=== PATIENT | female | born 1935 | race Caucasian/White ===

== ENCOUNTER 2017-07-09 08:20 | Emergency (ER) | payer MEDICARE, OTHER ==
[2017-07-09 08:30] VITALS: BP 148/74
--- NOTE | 2017-07-09 09:08 | UC ---
Epistaxis Nasal HPI - HPI Summary HPI Summary: Patient here today with complaints of left nerve bleeding on and off for the last 4 weeks today (been bleeding for about 30 minutes prior to arrival no known trauma. Patient does have a history of A. fib but is refusing to take her blood thinners not even taking aspirin a day. - History of Current Complaint Chief Complaint: UCGeneralIllness Stated Complaint: NOSE BLEED Time Seen by Provider: 07/09/17 08:51 Hx Obtained From: Patient ?: No Onset/Duration: Sudden Onset Timing: Constant Severity Currently: None Pain Intensity: 0 Pain Scale Used: 0-10 Numeric Character: Light Aggravating Factor(s): Nothing Alleviating Factor(s): Pressure Associated Signs And Symptoms: Positive: Negative - Allergies/Home Medications Allergies/Adverse Reactions: Allergies Allergy/AdvReac Type Severity Reaction Status Date / Time MS Morphine and Related Allergy Unknown dizzyness Verified 12/25/14 19:24 [Morphine and Related] alendronate sodium Allergy See Comment Verified 07/09/17 08:31 [From Fosamax] codeine Allergy See Comment Verified 07/09/17 08:31 morphine Allergy Dizziness Verified 07/09/17 08:31 MS Codeine [Codeine] Allergy lightheaded Verified 12/25/14 19:24 ness prednisone Allergy See Comment Verified 07/09/17 08:31 Home Medications: Home Medications Ascorbic Acid TAB* [Vitamin C TAB*] 500 mg PO DAILY 07/09/17 [History Confirmed 07/09/17] Cholecalciferol (Vitamin D3) [Vitamin D3] 1,000 unit PO 07/09/17 [History] Multivitamin [Multivitamins] 1 cap PO 07/09/17 [History] PMH/Surg Hx/FS Hx/Imm Hx Previously Healthy: No Cardiovascular History: Atrial Fibrillation - Surgical History Surgical History: Yes Surgery Procedure, Year, and Place: HYSTERECTOMY, APPY, tonsillectomy - Family History Known Family History: Positive: None - Social History Occupation: Retired Lives: With Family Alcohol Use: None Substance Use Type: None Smoking Status (MU): Never Smoked Tobacco Have You Smoked in the Last Year: No - Immunization History Most Recent Influenza Vaccination: unknown Most Recent Tetanus Shot: unknown Most Recent Pneumonia Vaccination: 2013 Review of Systems Constitutional: Negative Skin: Negative Eyes: Negative ENT: Epistaxis Respiratory: Negative Cardiovascular: Negative Gastrointestinal: Negative Genitourinary: Negative Motor: Negative Neurovascular: Negative Musculoskeletal: Negative Neurological: Negative Psychological: Negative Is Patient Immunocompromised?: No All Other Systems Reviewed And Are Negative: Yes Physical Exam Triage Information Reviewed: Yes Appearance: Well-Appearing, No Pain Distress, Well-Nourished Vital Signs: Initial Vital Signs Temp 98.7 F 07/09/17 08:24 Pulse 67 07/09/17 08:24 Resp 18 07/09/17 08:24 BP 148/74 07/09/17 08:24 Pulse Ox 97 07/09/17 08:24 Vital Signs Reviewed: Yes Eye Exam: Normal Eyes: Positive: Conjunctiva Clear ENT Exam: Normal ENT: Positive: Normal ENT inspection, Hearing grossly normal, Pharynx normal, TMs normal, Other - Bleeding and left nerve resolved with direct pressure small amount of Vaseline applied did leak B bleed out momentarily again quickly relieved with direct pressure. No specific open area observed septum of left nare. Negative: Trismus, Muffled voice, Hoarse voice, Dental tenderness Dental Exam: Normal Neck exam: Normal Neck: Positive: Supple, Nontender, No Lymphadenopathy Respiratory Exam: Normal Respiratory: Positive: Chest non-tender, Lungs clear, Normal breath sounds, No respiratory distress, No accessory muscle use Cardiovascular Exam: Normal Cardiovascular: Positive: RRR, No Murmur, Pulses Normal, Brisk Capillary Refill Musculoskeletal Exam: Normal Musculoskeletal: Positive: Strength Intact, ROM Intact, No Edema Neurological Exam: Normal Neurological: Positive: Alert, Muscle Tone Normal Psychological Exam: Normal Skin Exam: Normal Epistaxis Nasal Course/Dx - Course Course Of Treatment: Vaseline inside of left nare, coolness to notify her should bleeding return applied direct pressure report to emergency department for further care - Differential Dx/Diagnosis Provider Diagnoses: Epistaxis left nares resolved discharge, elevated blood pressure without history of hypertension Discharge - Discharge Plan Condition: Stable Disposition: HOME Patient Education Materials: Nosebleed (ED), Hypertension (ED) Referrals: Regan Thomas DO [Primary Care Provider] - 2 Days
[2017-07-09 13:56] LABS: ABS Basophils 0 10^3/ul (0-0.2); ABS Eosinophils 0.1 10^3/ul (0-0.6); ABS Lymphocytes 1.1 10^3/ul (1.0-4.8); ABS Monocytes 0.3 10^3/ul (0-0.8); ABS Neutrophils 3.5 10^3/ul (1.5-7.7); ABS Nucleated RBC 0 10^3/ul; Eosinophil % 1.9 % (0-6); Hematocrit 40 % (35-47); Hemoglobin 13.5 g/dl (12.0-16.0); Lymphocyte % 21.1 % (25-47); Mean Corpuscular HGB Conc 33 g/dl (31-36); Mean Corpuscular Hemoglobin 32 pg (27-31); Mean Corpuscular Volume 96 fL (80-97); Mean Platelet Volume 8 um3 (7.4-10.4); Nucleated Red Blood Cells % 0; Platelet Count 215 10^3/ul (150-450); Red Blood Count 4.23 10^6/ul (4.0-5.4); Red Cell Distribution Width 13 % (10.5-15)
== END 2017-07-09 09:40 | disposition home or self-care (01) ==
LOC: UCEAST 08:20
DX: R04.0 Epistaxis (principal); R03.0 Elevated blood-pressure reading, without diagnosis of hypertension; I48.91 Unspecified atrial fibrillation; Z88.5 Allergy status to narcotic agent; Z88.8 Allergy status to other drugs, medicaments and biological substances
CPT/HCPCS: 30901; 36415; 85025; 99211; G0463

== ENCOUNTER 2018-06-12 16:52 | Emergency (ER) | payer MEDICARE, OTHER ==
[2018-06-12 17:22] VITALS: BP 152/78
--- NOTE | 2018-06-12 17:40 | UC ---
Throat Pain/Nasal Dick HPI - HPI Summary HPI Summary: 83-year-old female here with a chief complaint of 10 days of upper respiratory tract infection symptoms. Started out with runny nose and dry cough sore throat. This continued her rhinorrhea has turned to yellow. She feels like this is in her chest some but not short of breath. No pedal edema no chest pain. Does feel tired. - History of Current Complaint Chief Complaint: UCRespiratory Stated Complaint: UPPER RESPITORY,CONGESTION Time Seen by Provider: 06/12/18 17:24 Pain Intensity: 0 - Allergies/Home Medications Allergies/Adverse Reactions: Allergies Allergy/AdvReac Type Severity Reaction Status Date / Time alendronate sodium Allergy See Comment Verified 07/09/17 08:31 [From Fosamax] codeine Allergy See Comment Verified 07/09/17 08:31 morphine Allergy Dizziness Verified 07/09/17 08:31 prednisone Allergy See Comment Verified 07/09/17 08:31 Home Medications: Home Medications Chlorpheniramine/Dextromethorp [Coricidin Hbp Cough & Col] 1 tab PO ONCE [History Confirmed 06/12/18] GuaiFENesin DM* [Robitussin DM*] 5 ml PO ONCE PRN 06/12/18 [History Confirmed ] PMH/Surg Hx/FS Hx/Imm Hx Previously Healthy: Yes Cardiovascular History: Hypertension Other History Of: Anticoagulant Therapy - Surgical History Surgical History: Yes Surgery Procedure, Year, and Place: HYSTERECTOMY, APPY, tonsillectomy - Family History Known Family History: Positive: None - Social History Alcohol Use: Rare Substance Use Type: None Smoking Status (MU): Never Smoked Tobacco Have You Smoked in the Last Year: No - Immunization History Most Recent Influenza Vaccination: unknown Most Recent Tetanus Shot: unknown Most Recent Pneumonia Vaccination: 2013 Review of Systems All Other Systems Reviewed And Are Negative: Yes Constitutional: Positive: Negative Skin: Positive: Negative Eyes: Positive: Negative ENT: Positive: Sore Throat, Nasal Discharge, Sinus Congestion Respiratory: Positive: Cough Cardiovascular: Positive: Negative Gastrointestinal: Positive: Negative Genitourinary: Positive: Negative Motor: Positive: Negative Neurovascular: Positive: Negative Musculoskeletal: Positive: Negative Neurological: Positive: Negative Psychological: Positive: Negative Is Patient Immunocompromised?: No Physical Exam Triage Information Reviewed: Yes Appearance: No Pain Distress, Well-Nourished, Ill-Appearing - mild Vital Signs: Initial Vital Signs Temp 98.7 F 06/12/18 17:16 Pulse 86 06/12/18 17:16 Resp 24 06/12/18 17:16 BP 152/78 06/12/18 17:16 Pulse Ox 97 06/12/18 17:16 Vital Signs Reviewed: Yes Eye Exam: Normal Eyes: Positive: Conjunctiva Clear ENT: Positive: Pharyngeal erythema, Nasal congestion, Nasal drainage, TMs normal Neck exam: Normal Neck: Positive: Supple Respiratory: Positive: Lungs clear, Normal breath sounds, No respiratory distress Cardiovascular: Positive: RRR Musculoskeletal Exam: Normal Musculoskeletal: Positive: Strength Intact, ROM Intact, No Edema Neurological Exam: Normal Neurological: Positive: Alert, Muscle Tone Normal Psychological Exam: Normal Psychological: Positive: Normal Response To Family, Age Appropriate Behavior Skin Exam: Normal Throat Pain/Nasal Course/Dx - Course Course Of Treatment: Patient and family report that with the same prior symptoms patient was treated with azithromycin and it worked for her. Follow- up primary care physician reevaluate sooner if worse. - Differential Dx/Diagnosis Provider Diagnosis: Sinusitis Discharge - Sign-Out/Discharge Documenting (check all that apply): Patient Departure All imaging exams completed and their final reports reviewed: No Studies - Discharge Plan Condition: Stable Disposition: HOME Prescriptions: Azithromyxin [place] (NF) [Z-[place] (Zithromax) 250 mg tabs #6] 2 tab PO .TODAY, THEN 1 DAILY #6 tab Patient Education Materials: Sinusitis (ED) Referrals: Regan Thomas DO [Primary Care Provider] - Additional Instructions: FOLLOW UP WITH YOUR DOCTOR IF NOT COMPLETELY IMPROVED. GET RECHECKED FOR ANY WORSENING OF YOUR CONDITION OR QUESTIONS OR CONCERNS. - Billing Disposition and Condition Condition: STABLE Disposition: Home
== END 2018-06-12 17:49 | disposition home or self-care (01) ==
LOC: UCCORT 16:52
DX: J32.9 Chronic sinusitis, unspecified (principal); I10 Essential (primary) hypertension; Z88.8 Allergy status to other drugs, medicaments and biological substances; Z88.5 Allergy status to narcotic agent
CPT/HCPCS: 99212; G0463

== ENCOUNTER 2018-12-09 08:17 | Emergency (ER) | payer MEDICARE, OTHER ==
--- OUTSIDE RECORDS SUMMARY | 2018-12-09 08:24 | XMS REPORT | Continuity of Care Document ---
:1935 External Reference #:[id number] Author Name Regan Thomas D.O. Address [address] [place] [address] Care Team Providers Name Role Phone HCP/LW on file Primary Care Physician Unavailable Payers Date Identification Numbers Payment Provider Subscriber Effective: 1999 Policy Number: [id number] [employer] Asher Garduno PayID: [id number] [address] [place] [address] Policy Number: [id number] [employer] Asher Carpio Shaan [address] [place] [address] Problems Active Problems Provider Date Essential hypertension Regan Thomas D.O. Onset: 03/26/2013 Atrial fibrillation Regan Thomas D.O. Onset: 03/26/2013 Screening for malignant neoplasm of colon Regan Thomas D.O. Onset: 2013 Arthralgia of the pelvic region and thigh Regan Thomas D.O. Onset: 2013 Chronic atrial fibrillation Regan Thomas D.O. 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 ETOH Use Occassional Alcohol Recreational Drug Use Denies Drug Use Tobacco Use Start: Unknown Patient has never smoked Smoking Status Reviewed: 11/23/18 Patient has never smoked Exercise Type/Frequency Exercises sporadically Exercise Type/Frequency Exercises rarely Sun Exposure Does not use sunscreen Seat Belt/Car Seat Seat Belt Use - Yes Contraceptive Methods None Allergies, Adverse Reactions, Alerts Active Allergies Reaction Severity Comments Date Prednisone Restless Leg Syndrome 03/06/2015 Fosamax black veins in teeth/feet 10/28/2017 Inactive Allergies NKDA 03/26/2013 Medications Active Medications SIG Qnty Indications Ordering Provider Date Bactrim DS 1 by mouth 20tabs Regan Thomas, 11/15/2018 800-160mg twice a day D.O. Tablets Diltiazem HCL ER Beads 1 Cap By Mouth 30caps I48.2 Regan Thomas, 2018 Every Day D.O. 180mg Caps ER 24HR (Afib) I10 Vitamin C daily Unknown 10/05/2016 500mg Capsules Multivitamin Adult 1 by mouth every Unknown 10/05/2016 W/Calcium And Iron day Tablets Digoxin 1 tab by mouth 30tabs I48.2 Regan Thomas, 12/10/2013 250mcg Tablets every day (afib) D.O. Metoprolol Succinate ER 1 Tab By Mouth 30tabs I48.2 Regan Thomas, 2013 25mg Every Day (Afib) D.O. Tablets ER 24HR I10 History Medications Calcitonin ([place]) Inhale 1 spray into 11.1ml [facility] 04[facility]16[facility]2018 - nostril daily in 1 Nish Spears 04/19/2018 200Unit/Act nostril, alternating Solution nostrils daily for postmenopausal osteoporosis Azithromycin 2 tabs day one and 1 6tabs Sil[place]ff, 03/30/2018 - 250mg tab days 2-5 Akosua Nielson 04/05/2018 Tablets Vitamin D3 2 tabs daily 180tabs E55.9 [facility], 10/20/2017 - 400Unit Denis SpearsO. 04/05/2018 Tablets N/B Vitamin D3 Take 1 Capsule By 90units William, 09/19/2017 - 5,000Iu (Lexii)SG Mouth Every Day Denis SpearsOVlad 10/02/2017 CP 5000 Flonase Allergy 2 sprays twice a day 47.400ml [facility], 10/10/2016 - Relief until better. Denis SpearsOVlad 07/09/2017 50mcg/Act Suspension Alendronate Sodium take with a full 12tabs [facility], 10/07/2015 - glass of water (6 to Sreekanth Spears.OVlad 10/29/2015 70mg Tablets 8 ounces; 180 to 240 ml) and avoid lying down for at least 30 minutes 1x/weekly on sun Vitamin D3 Maximum 1 by mouth every day 90caps [facility], 10/07/2015 - Strength Sreekanth Spears.O. 10/20/2017 5000Unit Capsules Robitussin DM take 10 milliliters 118ml [facility], 07/31/2015 - by mouth every 4 Sreekanth Spears.O. 09/11/2015 100-10mg/5ML Syrup hours as needed for cough Benzonatate 1 by mouth three 90caps R05 [facility], 07/31/2015 - 200mg times a day as needed Sreekanth Spears.OVlad 08/30/2015 Capsules cough Aspirin 1 every day for heart 90units I48.2 [facility], 04/16/2015 - 81mg Sreekanth Spears.O. 07/21/2015 Chewtabs Levaquin 1 by mouth every day Unknown 03/03/2015 - 500mg X 7 days 03/10/2015 Tablets Robitussin 1 tablet po every 12 Unknown 03/03/2015 - Cough+Chest hours 04/02/2015 Congestion DM Ultram 1 tab by mouth four 20tabs 724.1 [facility], 2014 - 50mg Tablets times a day as needed Regan D.OVlad 02/25/2014 Flexeril 1 by mouth three 90tabs Unknown 02/04/2014 - 10mg times a day do not 03/06/2014 Tablets operate heavy equipment while on meds, prn Naproxen 1 by mouth twice a 60tabs Unknown 02/04/2014 - Tablets day w/ food 03/06/2014 Digoxin 1 tablet by mouth 90units 427.31 [facility], 09/11/2013 - 0.25mg/ml once daily Sreekanth Spears.OVlad 09/11/2013 Solution Digoxin take 1 tablet daily 90tabs 427.31 [facility], 09/11/2013 - 125mcg for heart rate Denis SpearsOVlad 09/11/2013 Tablets control. Pradaxa Take 1 capsule by 60caps 427.31 William, 04/04/2013 - 150mg mouth 2 times per day Regan, D.O. 04/05/2013 Capsules for treatment to prevent stroke Diltiazem HCL ER 1 capsule by mouth 90caps I48.2 William, 11/13/2012 - one time daily Regan, D.O. 07/05/2018 180mg Caps ER 24HR I10 Digoxin 1 tablet by 90tabs 427.31 Unknown 11/13/2012 - 0.25mg Tablets mouth once daily 09/11/2013 Digoxin 1 tablet by 90tabs 427.31 Regan Thomas, - 0.25mg Tablets mouth once daily D.O. 12/10/2013 CA, MG, ZN Vit D3 1 po daily Unknown - 04/16/2015 200Iu/333 mg/133 mg/5 M Osteo Bi Flex 1 po daily Unknown - (Chrondroitin MSM 04/15/2014 Complex/Glucosamin HCL) 1288mg/1500 mg Flaxseed Oil one capsule po Unknown - 1000mg daily 04/16/2015 Capsules Cranberry 4200 1 po daily Unknown - MG-Vitamin C 40 MG-Vit 04/16/2015 E 6 Iu Vitamin C 1 po daily Unknown - 1000mg Tablets 04/15/2014 Calcium 600+D3 1 po daily Unknown - 10/15/2013 971-523lm-Cbsh Tablets Coq10 1 po daily Unknown - 100mg Capsules 10/15/2013 Multivitamins W/CA 250 1 po qd Unknown - MG-D3 1000 Iu 10/15/2013 Ladies 1 po daily Unknown - Choice-Phytoestrogen 10/15/2013 Vitamin B12 1 po daily Unknown - 500mcg 10/15/2013 Tablets Vitamin B6 1 po daily Unknown - 100mg Tablets 10/15/2013 Wells Padilla 1 po daily Unknown - 1530mg 10/15/2013 Capsules Vitamin D3 2 po daily Unknown - 1000Unit 10/15/2013 Capsules Immunizations CPT Code Status Date Vaccine Lot # [id number] Given 01/13/2018 Influenza Vaccine Split Virus Preservative Free Im Use [id number] Given 01/29/2017 Influenza Virus Vaccine, Quadrivalent, Split, Preservative Free [id number] Given 09/12/2015 Prevnar 13 [id number] Given 10/15/2013 Adacel or Boostrix, TDaP [id number] Given 03/31/2013 Flu, Split Virus 3Yrs [id number] Given 03/26/2013 Pneumococcal Immunization [id number] U-Flu Refused 03/24/2018 Influenza,Unspecified [id number] Refused 07/10/2017 Shingrix Zoster (Shingles) Vaccine (HZV) Recomb,Subnit,Adjuvanted Vital Signs Date Vital Result Comment 11/23/2018 3:24pm BP Systolic 124 mmHg BP Diastolic 68 mmHg Heart Rate 74 /min Height 65 inches 5'5" Weight 100.00 lb BMI (Body Mass Index) 16.6 kg/m2 11/15/2018 2:23pm BP Systolic 128 mmHg BP Diastolic 62 mmHg Body Temperature 99.1 F Weight 103.00 lb 04/16/2018 10:57am BP Systolic 131 mmHg rt arm w/automatic cuff BP Diastolic 63 mmHg rt arm w/automatic cuff Heart Rate 67 /min Height 65 inches 5'5" 04/06/2018 1:53pm BP Systolic 132 mmHg BP Diastolic 64 mmHg Heart Rate 76 /min O2 % BldC Oximetry 93 % Body Temperature 98.4 F Weight 99.00 lb 03/24/2018 9:35am BP Systolic 130 mmHg BP Diastolic 80 mmHg Body Temperature 98.5 F Height 65 inches 5'5" Weight 98.00 lb BMI (Body Mass Index) 16.3 kg/m2 10/03/2017 9:14am BP Systolic 132 mmHg BP Diastolic 80 mmHg Height 65 inches 5'5" Weight 100.00 lb BMI (Body Mass Index) 16.6 kg/m2 07/10/2017 5:05pm BP Systolic 134 mmHg BP Diastolic 82 mmHg Weight 99.00 lb 03/31/2017 2:57pm BP Systolic 139 mmHg BP Diastolic 74 mmHg Heart Rate 72 /min Height 65 inches 5'5" Weight 99.00 lb BMI (Body Mass Index) 16.5 kg/m2 10/06/2016 9:08am BP Systolic 118 mmHg BP Diastolic 60 mmHg Height 65.25 inches 5'5.25" Weight 102.00 lb BMI (Body Mass Index) 16.8 kg/m2 11/05/2015 1:24pm BP Systolic 116 mmHg BP Diastolic 58 mmHg 10/06/2015 2:30pm BP Systolic 154 mmHg BP Diastolic 93 mmHg Heart Rate 67 /min Height 65 inches 5'5" Weight 100.00 lb BMI (Body Mass Index) 16.6 kg/m2 09/12/2015 11:28am BP Systolic 115 mmHg BP Diastolic 78 mmHg Body Temperature 97.7 F Weight 100.00 lb 07/22/2015 5:09pm BP Systolic 128 mmHg BP Diastolic 78 mmHg Body Temperature 98.5 F Weight 100.00 lb 04/16/2015 8:43am BP Systolic 120 mmHg BP Diastolic 64 mmHg Height 65.25 inches 5'5.25" Weight 101.00 lb w/shoes BMI (Body Mass Index) 16.7 kg/m2 03/06/2015 1:38pm BP Systolic 136 mmHg BP Diastolic 72 mmHg Body Temperature 98.0 F Weight 101.00 lb W/Shoes 10/14/2014 8:33am BP Systolic 134 mmHg BP Diastolic 73 mmHg Heart Rate 81 /min Height 65.50 inches 5'5.50" Weight 101.00 lb BMI (Body Mass Index) 16.5 kg/m2 04/15/2014 8:33am BP Systolic 130 mmHg BP Diastolic 83 mmHg Heart Rate 71 /min Weight 104.00 lb 2014 4:57pm BP Systolic 146 mmHg BP Diastolic 90 mmHg Weight 104.00 lb shoes on 10/15/2013 9:30am BP Systolic 136 mmHg BP Diastolic 68 mmHg Height 65.5 inches 5'5.50" Weight 100.00 lb BMI (Body Mass Index) 16.4 kg/m2 04/04/2013 8:41am BP Systolic 150 mmHg BP Diastolic 78 mmHg Body Temperature 97.8 F Weight 99.00 lb shoes on 03/26/2013 2:13pm BP Systolic 152 mmHg sm electronic cuff BP Diastolic 109 mmHg sm electronic cuff BP Systolic Recheck 120 mmHg BP Diastolic Recheck 82 mmHg Heart Rate 83 /min Height 65.25 inches 5'5.25" Weight 97.00 lb BMI (Body Mass Index) 16.0 kg/m2 Results Test Date Facility Test Result H/L Range Note CBC Auto Diff 07/18/2018 [facility]. White Blood 4.7 K/uL Normal 3.1-10.7 1 LABORATORY Count [phone] Red Blood Count 4.55 M/uL Normal 3.90-5.40 Hemoglobin 14.3 gm/dL Normal 11.6-15.8 Hematocrit 43.9 % Normal 36.0-46.1 Mean Cell Volume 96.5 fl Normal 80.9-99.0 Mean Corpuscular HGB 31.4 pg Normal 25.9-32.7 Mean Corpuscular HGB Conc 32.6 g/dL Normal 30.8-34.3 Platelet Count 223 K/uL Normal 155-360 Red Cell Distri Width SD 45.1 fl Normal 36-47 Red Cell Distri Width %CV 13.0 % Normal 11.7-14.4 Mean Platelet Volume 9.8 fL Normal 8.9-12.4 Neut% 69.0 % Normal 40.4-72.8 Lymph % 20.5 % Normal 20.0-42.0 [place] % 8.2 % Normal 4.3-13.2 Eo% 1.5 % Normal 0.0-6.6 Bas% 0.8 % Normal 0.0-1.1 Neut# 3.27 K/uL Normal 1.8-7.0 Lymph # 0.97 K/uL Low 1.0-4.0 [place] # 0.39 K/uL Normal 0.3-0.9 Eos # 0.07 K/uL Normal 0.0-0.5 Baso # 0.04 K/uL Normal 0.0-0.1 Comp Metabolic 07/18/2018 [facility] Glucose 96 mg/dL Normal 74-106 Panel LABORATORY [phone] BUN 15 mg/dL Normal 7-18 Creatinine 0.6 mg/dL Normal 0.6-1.3 Glom Filtration Rate, Estimate >60 mL/min >60 If >60 mL/min >60 2 BUN/Creat 25.0 ratio Sodium 132 mmol/L Low 136-145 Potassium 4.1 mmol/L Normal 3.5-5.1 Chloride 97 mmol/L Low 98-107 Carbon Dioxide 35 mmol/L High 21-32 Anion Gap 0 mEq/L Low 8-16 Calcium 9.1 mg/dL Normal 8.5-10.1 Total Protein 7.7 g/dL Normal 6.4-8.2 Albumin 3.6 g/dL Normal 3.4-5.0 Globulin 4.1 g/dL Normal 1.9-4.3 Alb/Glob 0.9 ratio Bilirubin,Total 0.4 mg/dL Normal 0.2-1.0 Sgot/Ast 22 U/L Normal 15-37 SGPT/Alt 26 U/L Normal 12-78 Alkaline Phosphatase 103 U/L Normal 45-117 Laboratory test 07/18/2018 [facility] Thyroid 1.81 Normal 0.30-4.20 finding LABORATORY Stim uIU/mL [phone] Hormone Magnesium 2.3 mg/dL Normal 1.8-2.4 Vitamin D,25-Hydroxy 55.0 ng/mL 30.0-100.0 3 Xray 04/16/2018 [facility] Dexa Bone Density osteoporosis Study One Or More Sites Axial Skeleton Ua Inhouse 03/24/2018 In House Ua Ketones trace Ua Specific [place] 1.010 Ua PH 6.5 Ua Protein trace CBC Auto Diff 10/03/2017 [facility] White Blood 5.6 10^3/uL Normal 3.5-10.8 [phone] Count Red Blood Count 4.43 10^6/uL Normal 4.0-5.4 Hemoglobin 14.2 g/dL Normal 12.0-16.0 Hematocrit 42 % Normal 35-47 Mean Corpuscular Volume 95 fL Normal 80-97 Mean Corpuscular Hemoglobin 32 pg High 27-31 Mean Corpuscular HGB Conc 34 g/dL Normal 31-36 Red Cell Distribution Width 13 % Normal 10.5-15 Platelet Count 220 10^3/uL Normal 150-450 Mean Platelet Volume 8.4 um3 Normal 7.4-10.4 Abs Neutrophils 3.9 10^3/uL Normal 1.5-7.7 Abs Lymphocytes 1.2 10^3/uL Normal 1.0-4.8 Abs Monocytes 0.4 10^3/uL Normal 0-0.8 Abs Eosinophils 0.1 10^3/uL Normal 0-0.6 Abs Basophils 0 10^3/uL Normal 0-0.2 Abs Nucleated RBC 0 10^3/uL Granulocyte % 69.2 % Normal 38-83 Lymphocyte % 21.9 % Low 25-47 Monocyte % 6.7 % Normal 0-7 Eosinophil % 1.4 % Normal 0-6 Basophil % 0.8 % Normal 0-2 Nucleated Red Blood Cells % 0.1 Comp Metabolic Panel 10/03/2017 [facility] Sodium 137 mmol/L Low 139- 145 [phone] Potassium 4.7 mmol/L Normal 3.5-5.0 Chloride 99 mmol/L Low 101-111 Co2 Carbon Dioxide 32 mmol/L Normal 22-32 Anion Gap 6 mmol/L Normal 2-11 Glucose 93 mg/dL Normal 70-100 Blood Urea Nitrogen 15 mg/dL Normal 6-24 Creatinine 0.67 mg/dL Normal 0.51-0.95 BUN/Creatinine Ratio 22.4 High 8-20 Calcium 9.5 mg/dL Normal 8.6-10.3 Total Protein 6.9 g/dL Normal 6.4-8.9 Albumin 4.0 g/dL Normal 3.2-5.2 Globulin 2.9 g/dL Normal 2-4 Albumin/Globulin Ratio 1.4 Normal 1-3 Total Bilirubin 0.60 mg/dL Normal 0.2-1.0 Alkaline Phosphatase 88 U/L Normal 34-104 Alt 11 U/L Normal 7-52 Ast 21 U/L Normal 13-39 Egfr Non- 84.1 >60 Egfr 108.1 >60 4 Laboratory test 10/03/2017 [facility] TSH (Thyroid 1.59 mcIU/mL Normal 0.34-5.60 finding [phone] Stim Horm) Magnesium 2.2 mg/dL Normal 1.9-2.7 Vitamin D Total 25(Oh) 98.8 ng/mL High 20-50 CBC Auto Diff 07/09/2017 [facility] White Blood 5.0 10^3/uL Normal 3.5-10.8 5 [phone] Count Red Blood Count 4.23 10^6/uL Normal 4.0-5.4 Hemoglobin 13.5 g/dL Normal 12.0-16.0 Hematocrit 40 % Normal 35-47 Mean Corpuscular Volume 96 fL Normal 80-97 Mean Corpuscular Hemoglobin 32 pg High 27-31 Mean Corpuscular HGB Conc 33 g/dL Normal 31-36 Red Cell Distribution Width 13 % Normal 10.5-15 Platelet Count 215 10^3/uL Normal 150-450 Mean Platelet Volume 8 um3 Normal 7.4-10.4 Abs Neutrophils 3.5 10^3/uL Normal 1.5-7.7 Abs Lymphocytes 1.1 10^3/uL Normal 1.0-4.8 Abs Monocytes 0.3 10^3/uL Normal 0-0.8 Abs Eosinophils 0.1 10^3/uL Normal 0-0.6 Abs Basophils 0 10^3/uL Normal 0-0.2 Abs Nucleated RBC 0 10^3/uL Granulocyte % 69.8 % Normal 38-83 Lymphocyte % 21.1 % Low 25-47 Monocyte % 6.4 % Normal 0-7 Eosinophil % 1.9 % Normal 0-6 Basophil % 0.8 % Normal 0-2 Nucleated Red Blood Cells % 0 Laboratory 02/22/2017 [facility] Digoxin 2.2 ng/ml High 0.8-2.0 test finding [phone] Laboratory 01/06/2017 [facility] SEE RESULT 6, 7 test finding [phone] Pathology BELOW Laboratory 10/06/2016 [facility] SEE RESULT 8 test finding [phone] Pathology BELOW Xray 11/05/2015 [facility] X-Ray, no acute 9 Abdomen, process Acute Series, 2 views Laboratory 11/04/2015 [facility] Troponin-I 0.00 ng/mL Normal <0.03 10 test finding [phone] (TnI) Xray 10/06/2015 [facility] Dexa Bone Osteoporosis Density Study One Or More Sites Axial Skeleton CBC Auto Diff 10/06/2015 [facility] White Blood 4.7 10^3/uL Normal 3.5-10.8 [phone] Count Red Blood Count 4.50 10^6/uL Normal 4.0-5.4 Hemoglobin 14.0 g/dL Normal 12.0-16.0 Hematocrit 42 % Normal 35-47 Mean Corpuscular Volume 94 fL Normal 80-97 Mean Corpuscular Hemoglobin 31 pg Normal 27-31 Mean Corpuscular HGB Conc 33 g/dL Normal 31-36 Red Cell Distribution Width 13 % Normal 10.5-15 Platelet Count 204 10^3/uL Normal 150-450 Mean Platelet Volume 8 um3 Normal 7.4-10.4 Abs Neutrophils 2.9 10^3/uL Normal 1.5-7.7 Abs Lymphocytes 1.3 10^3/uL Normal 1.0-4.8 Abs Monocytes 0.4 10^3/uL Normal 0-0.8 Abs Eosinophils 0.1 10^3/uL Normal 0-0.6 Abs Basophils 0.1 10^3/uL Normal 0-0.2 Abs Nucleated RBC 0 10^3/uL Normal Granulocyte % 60.9 % Normal 38-83 Lymphocyte % 27.4 % Normal 25-47 Monocyte % 8.2 % Normal 1-9 Eosinophil % 2.1 % Normal 0-6 Basophil % 1.4 % Normal 0-2 Nucleated Red Blood Cells % 0 Normal Laboratory test 10/06/2015 [facility] TSH (Thyroid 2.03 ?IU/mL Normal 0.34-5.60 finding [phone] Stim Horm) Magnesium 2.2 mg/dL Normal 1.9-2.7 Vitamin D Total 25(Oh) 26.9 ng/mL Low 30-50 Comp Metabolic Panel 10/06/2015 [facility] Sodium 133 mmol/L Normal 133-145 [phone] Potassium 4.3 mmol/L Normal 3.5-5.0 Chloride 96 mmol/L Low 101-111 Co2 Carbon Dioxide 30 mmol/L Normal 22-32 Anion Gap 7 mmol/L Normal 2-11 Glucose 86 mg/dL Normal 70-100 Blood Urea Nitrogen 13 mg/dL Normal 6-24 Creatinine 0.62 mg/dL Normal 0.51-0.95 BUN/Creatinine Ratio 21.0 High 8-20 Calcium 9.2 mg/dL Normal 8.6-10.3 Total Protein 7.2 g/dL Normal 6.4-8.9 Albumin 4.2 g/dL Normal 3.2-5.2 Globulin 3.0 g/dL Normal 2-4 Albumin/Globulin Ratio 1.4 Normal 1-3 Total Bilirubin 0.50 mg/dL Normal 0.2-1.0 Alkaline Phosphatase 114 U/L High 34-104 Alt 9 U/L Normal 7-52 Ast 19 U/L Normal 13-39 Egfr Non- 92.4 Normal >60 Egfr 118.8 Normal >60 11 Laboratory test 12/25/2014 [facility] Urine Culture And SEE RESULT 12 finding [phone] Sensitivities BELOW CBC Auto Diff 10/14/2014 [facility] White Blood Count 4.8 10^3/uL Normal 4.8-1 13 [phone] 0.8 Red Blood Count 4.13 10^6/uL Normal 4.0-5.4 Hemoglobin 13.2 g/dL Normal 12.0-16.0 Hematocrit 40 % Normal 35-47 Mean Corpuscular Volume 97 fL Normal 80-97 Mean Corpuscular Hemoglobin 32 pg High 27-31 Mean Corpuscular HGB Conc 33 g/dL Normal 31-36 Red Cell Distribution Width 13 % Normal 10.5-15 Platelet Count 215 10^3/uL Normal 150-450 Mean Platelet Volume 9 um3 Normal 7.4-10.4 Abs Neutrophils 3.1 10^3/uL Normal 1.5-7.7 Abs Lymphocytes 1.2 10^3/uL Normal 1.0-4.8 Abs Monocytes 0.5 10^3/uL Normal 0-0.8 Abs Eosinophils 0.1 10^3/uL Normal 0-0.6 Abs Basophils 0.1 10^3/uL Normal 0-0.2 Abs Nucleated RBC 0 10^3/uL Normal Granulocyte % 63.8 % Normal 38-83 Lymphocyte % 23.8 % Low 25-47 Monocyte % 9.4 % High 1-9 Eosinophil % 1.6 % Normal 0-6 Basophil % 1.4 % Normal 0-2 Nucleated Red Blood Cells % 0.1 Normal Laboratory test 10/14/2014 [facility] TSH (Thyroid 1.22 ?IU/mL Normal 0.34-5.60 14 finding [phone] Stim Horm) Comp Metabolic 10/14/2014 [facility] Sodium 136 mmol/L Normal 133- 145 Panel [phone] Potassium 4.1 mmol/L Normal 3.5-5.0 Chloride 102 mmol/L Normal 101-111 Co2 Carbon Dioxide 31 mmol/L Normal 22-32 Anion Gap 3 mmol/L Normal 2-11 Glucose 75 mg/dL Normal 70-100 Blood Urea Nitrogen 14 mg/dL Normal 6-24 Creatinine 0.67 mg/dL Normal 0.51-0.95 BUN/Creatinine Ratio 20.9 High 8-20 Calcium 8.8 mg/dL Normal 8.6-10.3 Total Protein 6.6 g/dL Normal 6.4-8.9 Albumin 3.9 g/dL Normal 3.2-5.2 Globulin 2.7 g/dL Normal 2-4 Albumin/Globulin Ratio 1.4 Normal 1-3 Total Bilirubin 0.50 mg/dL Normal 0.2-1.0 Alkaline Phosphatase 88 U/L Normal 34-104 Alt 9 U/L Normal 7-52 Ast 17 U/L Normal 13-39 Egfr Non- 84.7 Normal >60 Egfr 108.9 Normal >60 15 Surgical 08/22/2014 [facility] RUN DATE: 16 Pathology [phone] 08/26/ <SEE NOTE> Surgical 05/30/2014 [facility] S RUN DATE: 17 Pathology [phone] 06/03/ <SEE NOTE> Xray 2014 [facility] X-Ray, Thoracic No acute 18 Spine, 2 Views process Laboratory test 10/15/2013 In House Occult Blood - negative x3 finding Stool Urine 10/15/2013 [facility] Ur Microalbumin 5.0 mg/dL <30 19 Microalbumin [phone] (mg/L) Random Urine Creatinine 93.87 mg/dL Urine Microalbumin/Creatinine 5.3 Less Than 31 Laboratory test 03/31/2013 [facility] Troponin I 0.01 ng/mL 0-0.06 20 finding [phone] CBC Auto Diff 03/30/2013 [facility] White Blood 5.9 10^3/uL 4.8- 10.8 [phone] Count Red Blood Count 4.03 10^6/uL 4.0-5.4 Hemoglobin 12.8 g/dL 12.0-16.0 Hematocrit 38 % 35-47 Mean Corpuscular Volume 95 fL 80-97 Mean Corpuscular Hemoglobin 32 pg High 27-31 Mean Corpuscular HGB Conc 33 g/dL 31-36 Red Cell Distribution Width 13 % 10.5-15 Platelet Count 215 10^3/uL 150-450 Mean Platelet Volume 9 um3 7.4-10.4 Abs Neutrophils 3.7 10^3/uL 1.5-7.7 Abs Lymphocytes 1.6 10^3/uL 1.0-4.8 Abs Monocytes 0.4 10^3/uL 0-0.8 Abs Eosinophils 0.1 10^3/uL 0-0.6 Abs Basophils 0.1 10^3/uL 0-0.2 Abs Nucleated RBC 0 10^3/uL Granulocyte % 63.5 % 38-83 Lymphocyte % 26.6 % 25-47 Monocyte % 7.1 % 1-9 Eosinophil % 1.7 % 0-6 Basophil % 1.1 % 0-2 Nucleated Red Blood Cells % 0.1 Comp Metabolic Panel 03/30/2013 [facility] Sodium 137 mmol/L 133- 145 [phone] Potassium 4.0 mmol/L 3.5-5.0 Chloride 99 mmol/L Low 101-111 Co2 Carbon Dioxide 31.0 mmol/L 22-32 Anion Gap 7.0 mmol/L 2-11 Glucose 99 mg/dL 70-100 Blood Urea Nitrogen 18 mg/dL 6-24 Creatinine 0.50 mg/dL 0.50-1.40 BUN/Creatinine Ratio 36.0 High 8-20 Calcium 9.2 mg/dL 8.1-9.9 Total Protein 7.5 g/dL 6.2-8.1 Albumin 4.0 g/dL 3.2-5.2 Globulin 3.5 g/dL 2-4 Albumin/Globulin Ratio 1.1 1-3 Total Bilirubin 0.7 mg/dL 0.4-1.5 Alkaline Phosphatase 95 U/L 30-110 Alt 18 U/L 14-54 Ast 27 U/L 12-42 Egfr Non- 119.0 >60 Egfr 153.1 >60 21 Laboratory test finding 03/30/2013 [facility] Phosphorus 3.8 mg/dL 2.4-4.7 [phone] Magnesium 2.2 mg/dL 1.7-2.6 Troponin I 0.01 ng/mL 0-0.06 22 TSH (Thyroid Stimulating Horm) 2.07 miu/mL 0.34-5.60 1 Z00.01 I48.2 E55.9 2 Note: Persistent reduction for 3 months or more in an eGFR <60 mL/min/1.73 m2 defines CKD. Patients with eGFR values >/=60 mL/min/1.73 m2 may also have CKD if evidence of persistent proteinuria is present. The original MDRD equation for estimated GFR is not valid for patients less than 18 years of age. Additional information may be found at www.kdoqi.org. 3 Vitamin D deficiency has been defined by the [place] of [employer] and an Endocrine Society practice guideline as a level of serum 25-OH vitamin D less than 20 ng/mL (1,2). The Endocrine Society went on to further define vitamin D insufficiency as a level between 21 and 29 ng/mL (2). 1. IOM ([place] of [employer]). 2010. Dietary reference intakes for calcium and D. [place]: The National Academies Press. 2. Gisel MF, Evonne MATHIS, Jessica PONCE, et al. Evaluation, treatment, and prevention of vitamin D deficiency: an Endocrine Society clinical practice guideline. JCEM. 2010; 96(7):1911-30. Performed at: RN - [facility] [address] [id number] Posting Clerk: Tiffany Whyte MD, Phone: [phone] 4 Because ethnic data is not always readily available, this report includes an eGFR for both -Americans and non- Americans. The National Kidney Disease Education Program (NKDEP) does not endorse the use of the MDRD equation for patients that are not between the ages of 18 and 70, are , have extremes of body size, muscle mass, or nutritional status, or are non- or non-. According to the National Kidney Foundation, irrespective of diagnosis, the stage of the disease is based on the level of kidney function: Stage Description GFR(mL/min/1.73 m(2)) 1 Kidney damage with normal or decreased GFR 90 2 Kidney damage with mild decrease in GFR 60-89 3 Moderate decrease in GFR 30-59 4 Severe decrease in GFR 15-29 5 Kidney failure <15 (or dialysis) 5 [id number] 7 SEE RESULT BELOW Name: ASHER GARDUNO : [address]: Godfrey Mcwilliams MD Acct: [id number] Unit: [id number] AGE: 81 Location: [facility] Re01/06/17 SEX: F Status: REG REF SPEC: [id number] NARCISO: 01/06/17-[address] [facility] [address]: Godfrey Mcwilliams MD REQ: [id number] RECD: 01/06/17-160 STATUS: MONICA BATISTA DR: Naga Childers MD _ ORDERED: LEVEL 4 COMMENTS: [id number] FINAL DIAGNOSIS Skin, left superior nasolabial fold, excision: -- Basal cell carcinoma, focal, superficial type. -- Prior surgical site related changes. -- Deep, tip, and lateral margins of resection are clear. CLINICAL HISTORY [place] [facility] [id number] PRE-OPERATIVE DIAGNOSIS Basal cell carcinoma, suture arora 12:00 superior apex margin GROSS DESCRIPTION The specimen is received in formalin labeled, Excision Basal Cell Carcinoma Left Superior Nasolabial Fold, Suture Arora 12:00 Superior Hughson Margin, and consists of a 3.5 x 1.1 cm baig-pink wrinkled skin ellipse excised to a maximum depth of 0.5 cm. There is a suture attached to one long axis which designates the 12:00 superior apex margin. The specimen is inked as follows: 9:00 half black, 3:00 half blue and 12:00 tip green, serially sectioned from 12:00 to 6:00 and entirely submitted in cassettes A through D to include ellipse ends in cassette A. Signed (signature on file) Scooby Rangel MD 1302 END OF REPORT * ML=Testing performed at Main Lab DEPARTMENT OF PATHOLOGY, [address] [place] [address] Scooby Rangel M.D. Director [facility] # [id number] SEE RESULT BELOW Name: ASHER GARDUNO : [address]: Regan Thomas DO Acct: [id number] Unit: [id number] AGE: 81 Location: [facility] Re10/06/16 SEX: F Status: REG REF SPEC: [id number] NARCISO: 10/06/16-[address] [facility] [address]: Regan Thomas DO REQ: [id number] RECD: 10/06/16 STATUS: SOUT _ ORDERED: LEVEL 4 COMMENTS: [id number] FINAL DIAGNOSIS Skin, left face cheek, shave excision: -- Basal cell carcinoma, nodular and infiltrating pattern. -- Basal cell carcinoma is transected along the base of this superficial excision. PRE-OPERATIVE DIAGNOSIS R23.9 Unspecified skin changes, 2 mm area raise in area of previous basal cell carcinoma shave biopsy. GROSS DESCRIPTION The specimen is received in formalin labeled, Left Face, Cheek, and consists of a 1.0 x 0.7 x 0.2 cm baig-white focally nodular/indurated skin fragment which is inked, serially sectioned and entirely submitted in one cassette. Signed (signature on file) Scooby Rangel MD 1228 END OF REPORT * ML=Testing performed at Main Lab DEPARTMENT OF PATHOLOGY, [address] [place] [address] Scooby Rangel M.D. Director [facility] # [id number] 9 Increased concentration of bowel and gas in right lower quadrant. 10 Reference Range and Interpretation: TnI (ng/mL) Interpretation Less Than 0.03 ng/mL Not supportive of diagnosis of MO 0.03 - 0.50 ng/mL Indeterminate: suggest serial studies if clinically indicated. Greater than 0.5 ng/mL Consistent with diagnosis of MO 11 Because ethnic data is not always readily available, this report includes an eGFR for both -Americans and non- Americans. The National Kidney Disease Education Program (NKDEP) does not endorse the use of the MDRD equation for patients that are not between the ages of 18 and 70, are , have extremes of body size, muscle mass, or nutritional status, or are non- or non-. According to the National Kidney Foundation, irrespective of diagnosis, the stage of the disease is based on the level of kidney function: Stage Description GFR(mL/min/1.73 m(2)) 1 Kidney damage with normal or decreased GFR 90 2 Kidney damage with mild decrease in GFR 60-89 3 Moderate decrease in GFR 30-59 4 Severe decrease in GFR 15-29 5 Kidney failure <15 (or dialysis) 12 SEE RESULT BELOW Name: ASHER GARDUNO : [address]: Maribel Flores MD Acct: [id number] Unit: [id number] AGE: 79 Location: [facility] Re12/25/14 SEX: F Status: DEP ER SPEC: [id number] NARCISO: 12/25/[address]: Maribel Flores MD REQ: [id number] RECD: 12/26/14 STATUS: TISH BATISTA DR: Regan Thomas DO _ SOURCE: URINE SPDESC: ORDERED: Urine Culture Procedure Result Verified Site Urine Culture Final 12/28/14- 920 ML Organism 1 NORMAL JUAN JOSE Jackson Count 10-25,000 (Moderate) CFU/ML * ML - MAIN LAB (PSC1) . END OF REPORT * ML=Testing performed at Main Lab DEPARTMENT OF PATHOLOGY, [facility] [employer] [place], [place] [address] Scooby Rangel M.D. Director [facility] # [id number] 13 Vitamin D not done by lab, possibly an electronic error. SL 14 CANCEL VD25 PER NOT COVERED 15 Because ethnic data is not always readily available, this report includes an eGFR for both -Americans and non- Americans. The National Kidney Disease Education Program (NKDEP) does not endorse the use of the MDRD equation for patients that are not between the ages of 18 and 70, are , have extremes of body size, muscle mass, or nutritional status, or are non- or non-. According to the National Kidney Foundation, irrespective of diagnosis, the stage of the disease is based on the level of kidney function: Stage Description GFR(mL/min/1.73 m(2)) 1 Kidney damage with normal or decreased GFR 90 2 Kidney damage with mild decrease in GFR 60-89 3 Moderate decrease in GFR 30-59 4 Severe decrease in GFR 15-29 5 Kidney failure <15 (or dialysis) 16 RUN DATE: 08/26/14 [facility] LAB LIVE PAGE 1 RUN TIME: 4386 [facility] [employer] [place], [place] [address] Specimen Inquiry Name: ASHER GARDUNO : [address]: Godfrey Mcwilliams MD Acct: [id number] Unit: [id number] AGE: 79 Location: [facility] Re08/22/14 SEX: F Status: REG REF SPEC: [id number] NARCISO: 08/22/14-[address] [facility] [address]: Godfrey Mcwilliams MD REQ: [id number] RECD: 08/22/14 STATUS: MONICA BATISTA DR: Regan Thomas DO _ ORDERED: LEVEL IV FINAL DIAGNOSIS Skin, left side of nose, reexcision: -- Focal residual basal cell carcinoma, superficial. -- Deep tip and lateral margins are clear. CLINICAL HISTORY Previous biopsy [id number] PRE-OPERATIVE DIAGNOSIS Basal cell carcinoma; suture arora 12 o'clock superior apex margin GROSS DESCRIPTION The specimen is received in formalin labeled, Reexcision Basal Cell Carcinoma Left Side of Nose, Suture Arora 12:00 Superior Hughson Margin, and consists of a 1.7 x 0.4 cm mottled baig-beaulieu wrinkled skin ellipse excised to a depth of 0.2 cm. There is a suture attached to one long axis which designates the 12:00 superior apex margin. The specimen is inked as follows: 9:00 half black, 3:00 half blue and 12:00 tip green, serially sectioned from 12:00 to 6:00 and entirely submitted in cassettes A and B to include ellipse ends in cassette A. Signed (signature on file) Scooby Rangel MD 1336 END OF REPORT * ML=Testing performed at Main Lab DEPARTMENT OF PATHOLOGY, [facility] [employer] [place], [place] [address] Scooby Rangel M.D. Director [facility] # [id number] 17 RUN DATE: 06/03/14 [facility] LAB LIVE PAGE 1 RUN TIME: 1227 [facility] [employer] [place], [place] [address] Specimen Inquiry Name: ASHER GARDUNO : [address]: Godfrey Mcwilliams MD Acct: [id number] Unit: [id number] AGE: 79 Location: [facility] Re05/30/14 SEX: F Status: REG REF SPEC: [id number] NARCISO: 05/30/14-[address] [facility] [address]: Godfrey Mcwilliams MD REQ: [id number] RECD: 05/30/14 STATUS: MONICA BATISTA DR: Regan Thomas DO _ ORDERED: LEVEL IV FINAL DIAGNOSIS Skin, left side of nose, biopsy: -- Basal cell carcinoma, nodular type with associated dermal pigment incontinence. -- Basal cell approaches to within 0.01 mm of the unoriented lateral margin. Dr. Van has reviewed this case and concurs. PRE-OPERATIVE DIAGNOSIS Rule out seborrheic keratosis GROSS DESCRIPTION The specimen is received in formalin labeled, Excision Skin Lesion Left Side of Nose, and consists of a 0.8 x 0.4 x 0.2 cm baig-beaulieu irregular to elliptical portion of skin. There is an eccentric 0.3 x 0.3 cm brown-black slightly raised area. The specimen is inked, bisected and submitted entirely in one cassette. Signed (signature on file) Scooby Rangel MD 1227 END OF REPORT * ML=Testing performed at Main Lab DEPARTMENT OF PATHOLOGY, [address] [place] [address] Scooby Rangel M.D. Director [facility] # [id number] 18 Athersclerotic great vessels no fractures 19 Microalbuminuria in a random sample is defined as: Microalbumin/Creatinine ratio of 30-299 ug/mg. 20 Reference Range and Interpretation: TnI (ng/mL) Interpretation Less Than 0.06 ng/mL Not supportive of diagnosis of MO 0.06 - 0.50 ng/mL Indeterminate: suggest serial studies if clinically indicated. Greater than 0.5 ng/mL Consistent with diagnosis of MO 21 Because ethnic data is not always readily available, this report includes an eGFR for both -Americans and non- Americans. The National Kidney Disease Education Program (NKDEP) does not endorse the use of the MDRD equation for patients that are not between the ages of 18 and 70, are , have extremes of body size, muscle mass, or nutritional status, or are non- or non-. According to the National Kidney Foundation, irrespective of diagnosis, the stage of the disease is based on the level of kidney function: Stage Description GFR(mL/min/1.73 m(2)) 1 Kidney damage with normal or decreased GFR 90 2 Kidney damage with mild decrease in GFR 60-89 3 Moderate decrease in GFR 30-59 4 Severe decrease in GFR 15-29 5 Kidney failure <15 (or dialysis) 22 Reference Range and Interpretation: TnI (ng/mL) Interpretation Less Than 0.06 ng/mL Not supportive of diagnosis of MO 0.06 - 0.50 ng/mL Indeterminate: suggest serial studies if clinically indicated. Greater than 0.5 ng/mL Consistent with diagnosis of MO Procedures Date Code Description Status 11/15/2018 55520 Electrocardiogram Complete Completed 04/16/2018 29693 Dexa Bone Density Study One Or More Sites Axial Completed Skeleton 04/06/2018 90033 X-Ray Chest 2 V Completed 10/03/2017 87847 Brief Emotional/Behav Assessment W/ Scoring Doc Per Completed Standard Inst 07/10/2017 40193 Control Nosebleed Anterior Simple Completed 10/06/2016 42837 Biopsy Skin Lesion Single Completed 11/05/2015 03581 Xray Abdomen Upright/Flat Abd Completed 10/06/2015 14530 Dexa Bone Density Study One Or More Sites Axial Completed Skeleton 2014 54156 Omt 3 To 4 Body Regions Involved Completed 2014 64710 X-Ray, Thoracic Spine, Ap & Lat Completed 10/15/2013 32776854 Mammogram Completed Encounters Type Date Location Provider Dx Diagnosis Office Visit 11/15/2018 Main Office Regan Thomas, I48.2 Chronic atrial 2:30p D.O. fibrillation I10 Essential (primary) hypertension R05 Cough R19.7 Diarrhea, unspecified R07.89 Other chest pain J44.1 Chronic obstructive pulmonary disease w (acute) exacerbation Office Visit 04/16/2018 10:00a Main Office Regan Thomas Z78.0 Asymptomatic D.O. menopausal state E55.9 Vitamin D deficiency, unspecified I48.2 Chronic atrial fibrillation Z00.01 Encounter for general adult medical exam w abnormal findings I10 Essential (primary) hypertension K44.9 Diaphragmatic hernia without obstruction or gangrene Z79.899 Other mcc (current) drug therapy M81.0 Age-related osteoporosis w/o current pathological fracture Office Visit 04/06/2018 2:00p Main Office Regan Thomas, I48.2 Chronic atrial D.O. fibrillation J06.9 Acute upper respiratory infection, unspecified I10 Essential (primary) hypertension R06.02 Shortness of breath K44.9 Diaphragmatic hernia without obstruction or gangrene Z02.2 Encounter for exam for admission to residential institution Office Visit 03/24/2018 9:30a Main Office Trena Nielsen I48.2 Chronic atrial P.A. fibrillation R11.2 Nausea with vomiting, unspecified J06.9 Acute upper respiratory infection, unspecified Z79.899 Other mcc (current) drug therapy Office Visit 07/10/2017 4:30p Main Office Naga Childers M.D. R04.0 Epistaxis Z71.89 Other specified counseling I48.2 Chronic atrial fibrillation Office Visit 03/31/2017 2:45p Main Office Regan Thomas, I48.2 Chronic atrial D.O. fibrillation I10 Essential (primary) hypertension C44.310 Basal cell carcinoma of skin of unspecified parts of face Office Visit 10/06/2016 8:55a Main Office Regan Thomas, I48.2 Chronic atrial D.O. fibrillation I10 Essential (primary) hypertension Z00.01 Encounter for general adult medical exam w abnormal findings R23.9 Unspecified skin changes Office Visit 11/05/2015 1:15p Main Office Regan Thomas, R10.84 Generalized D.O. 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 fibrillation J04.0 Acute laryngitis Office Visit 04/16/2015 8:30a Main Office Regan Thomas, I48.2 Chronic atrial D.O. fibrillation I10 Essential (primary) hypertension R20.8 Other disturbances of skin sensation Office Visit 03/06/2015 1:30p Main Office Regan Thomas, I48.2 Chronic atrial D.O. fibrillation I10 Essential (primary) hypertension J18.8 Other pneumonia, unspecified organism Office Visit 10/14/2014 8:30a Main Office Regan Thomas, 719.45 Pain Joint D.O. Pelvic Region & Thigh 401.9 Hypertension Unspec 427.31 Atrial Fibrillation Office Visit 04/15/2014 8:30a Main Office Regan Thomas, 709.00 Dyschromia Unspec D.O. 719.45 Pain Joint Pelvic Region & Thigh 401.9 Hypertension Unspec 427.31 Atrial Fibrillation Office Visit 2014 4:45p Main Office Regan Thomas, 724.1 Pain Thoracic D.O. Spine 401.9 Hypertension Unspec 427.31 Atrial Fibrillation 739.2 Lesion Nonallopathic Thoracic Region Not Elsewhere Class 739.8 Lesion Nonallopathic Rib Cage Not Elsewhere Class 739.9 Lesion Nonallopathic Abdomen & Other Not Elsewhere Class Office Visit 10/15/2013 9:30a Main Office Regan Thomas, V76.51 Special Screening D.O. For Malignant Neoplasms Colon 401.9 Hypertension Unspec V06.1 Shreeprept-Lptiaiw-Iyzusrcp Combined (DTaP) V07.2 Prophylactic Immunotherapy 427.31 Atrial Fibrillation V65.40 Counseling Other Unspec NOS Office Visit 04/04/2013 8:45a Main Office Regan Thomas, 427.31 Atrial Fibrillation D.O. 401.9 Hypertension Unspec 786.50 Pain Chest Unspec Office Visit 03/26/2013 2:00p Main Office Regan Thomas, 401.9 Hypertension Unspec D.O. 427.31 Atrial Fibrillation v03.82 Streptococcus Pneumoniae Vaccination Spec Other v07.2 Prophylactic Immunotherapy
--- OUTSIDE RECORDS SUMMARY | 2018-12-09 08:24 | XMS REPORT | Continuity of Care Document ---
:1935 External Reference #:[id number] Author Name Maryjane Cloud Care Team Providers Name Role Phone HCP/LW on file Primary Care Physician Unavailable Payers Date Identification Numbers Payment Provider Subscriber Effective: 1999 Policy Number: [id number] [employer] Asher Carpio Shaan PayID: [id number] [address] [place] [address] Policy Number: [id number] [place] [employer] Asher Carpio Shaan [address] [place] [address] Problems Active Problems Provider Date Essential hypertension [...] years. 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 ETOH Use Occassional Alcohol Recreational Drug Use Denies Drug Use Tobacco Use Start: Unknown Patient has never smoked Smoking Status Reviewed: 11/15/18 Patient has never smoked Exercise Type/Frequency Exercises [...] Tablets ER 24HR I10 History Medications Calcitonin ([place]) Inhale 1 spray into 11.1ml [facility], 04/16/2018 - nostril daily in 1 Denis SpearsOVlad 04/19/2018 200Unit/Act nostril, alternating Solution nostrils daily for postmenopausal osteoporosis Azithromycin 2 tabs day one and 1 6tabs [place], 03/30/2018 - 250mg tab days 2-5 Akosua Nielson 04/05/2018 Tablets Vitamin D3 2 tabs daily 180tabs E55.9 [facility], 10/20/2017 - 400Unit Sreekanth Spears.O. 04/05/2018 Tablets N/B Vitamin D3 Take 1 Capsule [facility]units [facility] 09/19[facility]2017 - 5,000Iu (Lexii)SG Mouth Every Day Denis SpearsOVlad 10/02/2017 CP 5000 Flonase Allergy 2 sprays twice a day 47.400ml [facility], 10/10/2016 - Relief until better. Denis SpearsOVlad 07/09/2017 50mcg/Act Suspension Alendronate Sodium take with a full 12tabs [facility], 10/07/2015 - glass of water (6 to Sreekanth Spears.OVlad 10/29/2015 70mg Tablets 8 ounces; 180 to 240 ml) and avoid lying down for at least 30 minutes 1x/weekly on sun Vitamin D3 Maximum 1 by mouth every day 90caps [facility], 10/07/2015 - Strength Denis SpearsOVlad 10/20/2017 5000Unit Capsules Robitussin DM take 10 milliliters 118ml William, 07/31/2015 - by mouth every 4 Sreekanth Spears.OVlad 09/11/2015 100-10mg/5ML Syrup hours as needed for cough Benzonatate 1 by mouth three 90caps R05 [facility], 07/31/2015 - 200mg times a day as needed Denis SpearsOVlad 08/30/2015 Capsules cough Aspirin 1 every day for heart 90units I48.2 [facility], 04/16/2015 - 81mg Sreekanth Spears.OVlad 07/21/2015 Chewtabs Levaquin 1 by mouth every day Unknown 03/03/2015 - 500mg X 7 days 03/10/2015 Tablets Robitussin 1 tablet po every 12 Unknown 03/03/2015 - Cough+Chest hours 04/02/2015 Congestion DM Ultram 1 tab by mouth four [facility] Tablets times a day as needed Nish Spears 02/25/2014 Flexeril 1 by mouth three 90tabs Unknown 02/04/2014 - 10mg times a day do not 03/06/2014 Tablets operate heavy equipment while on meds, prn Naproxen 1 by mouth twice a 60tabs Unknown 02/04/2014 - Tablets day w/ food 03/06/2014 Digoxin 1 tablet by mouth 90units 427.31 William, 09/11/2013 - 0.25mg/ml once daily Denis SpearsOVlad 09/11/2013 Solution Digoxin take 1 tablet daily 90tabs 427.31 [facility], 09/11/2013 - 125mcg for heart rate Nish Spears 09/11/2013 Tablets control. Pradaxa Take 1 capsule by 60caps 427.31 William, 04/04/2013 - 150mg mouth 2 times per day Nish Spears 04/05/2013 Capsules for treatment to prevent stroke Diltiazem HCL ER 1 capsule by mouth 90caps I48.2 [facility], 11/13/2012 - one time daily Regan D.O. 07/05/2018 180mg Caps ER 24HR I10 [...] 600+D3 1 po daily Unknown - 10/15/2013 [id number] Tablets Coq10 1 po daily Unknown - 100mg Capsules 10/15/2013 Multivitamins W/CA 250 1 po qd Unknown - MG-D3 1000 Iu 10/15/2013 Ladies 1 po daily Unknown - Choice-Phytoestrogen 10/15/2013 Vitamin B12 1 po daily Unknown - 500mcg 10/15/2013 Tablets Vitamin B6 1 po daily Unknown - 100mg Tablets 10/15/2013 [place] 1 po daily Unknown - 1530mg 10/15/2013 Capsules Vitamin D3 2 po daily Unknown - 1000Unit 10/15/2013 Capsules Immunizations CPT Code Status Date Vaccine Lot # [id number] Given 01/13/2018 Influenza Vaccine Split Virus Preservative Free [place] Use [id number] Given 01/29/2017 Influenza Virus Vaccine, Quadrivalent, Split, Preservative Free [id number] Given 09/12/2015 Prevnar 13 [id number] 19079 Given 10/15/2013 Adacel or Boostrix, TDaP [id number] Given 03/31/2013 Flu, Split Virus [id number] 26847 Given 03/26/2013 Pneumococcal Immunization [id number] U-Flu Refused 03/24/2018 Influenza,Unspecified 19444 Refused 07/10/2017 Shingrix Zoster (Shingles) Vaccine (HZV) Recomb,Subnit,Adjuvanted Vital Signs Date Vital Result Comment 11/15/2018 2:23pm BP Systolic 128 mmHg BP [...] H/L Range Note CBC Auto Diff 07/18/2018 [facility]. White Blood 4.7 K/uL N 3.1-10.7 1 LABORATORY Count [phone] Red Blood Count 4.55 M/uL N 3.90-5.40 Hemoglobin 14.3 gm/dL N 11.6-15.8 Hematocrit 43.9 % N 36.0-46.1 Mean Cell Volume 96.5 fl N 80.9-99.0 Mean Corpuscular HGB 31.4 pg N 25.9-32.7 Mean Corpuscular HGB Conc 32.6 g/dL N 30.8-34.3 Platelet Count 223 K/uL N 155-360 Red Cell Distri Width SD 45.1 fl N 36-47 Red Cell Distri Width %CV 13.0 % N 11.7-14.4 Mean Platelet Volume 9.8 fL N 8.9-12.4 Neut% 69.0 % N 40.4-72.8 Lymph % 20.5 % N 20.0-42.0 [place] % 8.2 % N 4.3-13.2 Eo% 1.5 % N 0.0-6.6 Bas% 0.8 % N 0.0-1.1 Neut# 3.27 K/uL N 1.8-7.0 Lymph # 0.97 K/uL Low 1.0-4.0 [place] # 0.39 K/uL N 0.3-0.9 Eos # 0.07 K/uL N 0.0-0.5 Baso # 0.04 K/uL N 0.0-0.1 Comp Metabolic Panel 07/18/2018 [facility] Glucose 96 mg/dL N 74-106 LABORATORY [phone] BUN 15 mg/dL N 7-18 Creatinine 0.6 mg/dL N 0.6-1.3 Glom Filtration Rate, Estimate >60 mL/min >60 If >60 mL/min >60 2 BUN/Creat 25.0 ratio Sodium 132 mmol/L Low 136-145 Potassium 4.1 mmol/L N 3.5-5.1 Chloride 97 mmol/L Low 98-107 Carbon Dioxide 35 mmol/L High 21-32 Anion Gap 0 mEq/L Low 8-16 Calcium 9.1 mg/dL N 8.5-10.1 Total Protein 7.7 g/dL N 6.4-8.2 Albumin 3.6 g/dL N 3.4-5.0 Globulin 4.1 g/dL N 1.9-4.3 Alb/Glob 0.9 ratio Bilirubin,Total 0.4 mg/dL N 0.2-1.0 Sgot/Ast 22 U/L N 15-37 SGPT/Alt 26 U/L N 12-78 Alkaline Phosphatase 103 U/L N 45-117 Laboratory test 07/18/2018 [facility] Thyroid Stim 1.81 uIU/ mL N 0.30-4.20 finding LABORATORY Hormone [phone] Magnesium 2.3 mg/dL N 1.8-2.4 Vitamin D,25-Hydroxy 55.0 ng/mL 30.0-100.0 3 Xray 04/16/2018 [facility] Dexa Bone Density osteoporosis Study One Or More Sites Axial Skeleton Ua Inhouse 03/24/2018 In House Ua Ketones trace Ua Specific [place] 1.010 Ua PH 6.5 Ua Protein trace CBC Auto Diff 10/03/2017 [facility] White Blood Count 5.6 10^3/uL N 3.5-10.8 [phone] Red Blood Count 4.43 10^6/uL N 4.0-5.4 Hemoglobin 14.2 g/dL N 12.0-16.0 Hematocrit 42 % N 35-47 Mean Corpuscular Volume 95 fL N 80-97 Mean Corpuscular Hemoglobin 32 pg High 27-31 Mean Corpuscular HGB Conc 34 g/dL N 31-36 Red Cell Distribution Width 13 % N 10.5-15 Platelet Count 220 10^3/uL N 150-450 Mean Platelet Volume 8.4 um3 N 7.4-10.4 Abs Neutrophils 3.9 10^3/uL N 1.5-7.7 Abs Lymphocytes 1.2 10^3/uL N 1.0-4.8 Abs Monocytes 0.4 10^3/uL N 0-0.8 Abs Eosinophils 0.1 10^3/uL N 0-0.6 Abs Basophils 0 10^3/uL N 0-0.2 Abs Nucleated RBC 0 10^3/uL Granulocyte % 69.2 % N 38-83 Lymphocyte % 21.9 % Low 25-47 Monocyte % 6.7 % N 0-7 Eosinophil % 1.4 % N 0-6 Basophil % 0.8 % N 0-2 Nucleated Red Blood Cells % 0.1 Comp Metabolic Panel 10/03/2017 [facility] Sodium 137 mmol/L Low 139- 145 [phone] Potassium 4.7 mmol/L N 3.5-5.0 Chloride 99 mmol/L Low 101-111 Co2 Carbon Dioxide 32 mmol/L N 22-32 Anion Gap 6 mmol/L N 2-11 Glucose 93 mg/dL N 70-100 Blood Urea Nitrogen 15 mg/dL N 6-24 Creatinine 0.67 mg/dL N 0.51-0.95 BUN/Creatinine Ratio 22.4 High 8-20 Calcium 9.5 mg/dL N 8.6-10.3 Total Protein 6.9 g/dL N 6.4-8.9 Albumin 4.0 g/dL N 3.2-5.2 Globulin 2.9 g/dL N 2-4 Albumin/Globulin Ratio 1.4 N 1-3 Total Bilirubin 0.60 mg/dL N 0.2-1.0 Alkaline Phosphatase 88 U/L N 34-104 Alt 11 U/L N 7-52 Ast 21 U/L N 13-39 Egfr Non- 84.1 >60 Egfr 108.1 >60 4 Laboratory test 10/03/2017 [facility] TSH (Thyroid 1.59 mcIU/mL N 0.34-5.60 finding [phone] Stim Horm) Magnesium 2.2 mg/dL N 1.9-2.7 Vitamin D Total 25(Oh) 98.8 ng/mL High 20-50 CBC Auto Diff 07/09/2017 [facility] White Blood Count 5.0 10^3/uL N 3.5-10.8 5 [phone] Red Blood Count 4.23 10^6/uL N 4.0-5.4 Hemoglobin 13.5 g/dL N 12.0-16.0 Hematocrit 40 % N 35-47 Mean Corpuscular Volume 96 fL N 80-97 Mean Corpuscular Hemoglobin 32 pg High 27-31 Mean Corpuscular HGB Conc 33 g/dL N 31-36 Red Cell Distribution Width 13 % N 10.5-15 Platelet Count 215 10^3/uL N 150-450 Mean Platelet Volume 8 um3 N 7.4-10.4 Abs Neutrophils 3.5 10^3/uL N 1.5-7.7 Abs Lymphocytes 1.1 10^3/uL N 1.0-4.8 Abs Monocytes 0.3 10^3/uL N 0-0.8 Abs Eosinophils 0.1 10^3/uL N 0-0.6 Abs Basophils 0 10^3/uL N 0-0.2 Abs Nucleated RBC 0 10^3/uL Granulocyte % 69.8 % N 38-83 Lymphocyte % 21.1 % Low 25-47 Monocyte % 6.4 % N 0-7 Eosinophil % 1.9 % N 0-6 Basophil % 0.8 % N 0-2 Nucleated Red Blood Cells % 0 Laboratory 02/22/2017 [facility] Digoxin 2.2 ng/ml High 0.8-2.0 test finding [phone] Laboratory 01/06/2017 [facility] Surgical SEE RESULT 6, 7 test finding [phone] Pathology BELOW Laboratory 10/06/2016 [facility] SEE RESULT 8 test finding [phone] Pathology BELOW Xray 11/05/2015 [facility] X-Ray, no acute 9 Abdomen, process Acute Series, 2 views Laboratory 11/04/2015 [facility] Troponin-I 0.00 ng/mL N <0.03 10 test finding [phone] (TnI) Xray 10/06/2015 [facility] Dexa Bone Osteoporosis Density Study One Or More Sites Axial Skeleton CBC Auto Diff 10/06/2015 [facility] White Blood 4.7 10^3/uL N 3.5- 10.8 [phone] Count Red Blood Count 4.50 10^6/uL N 4.0-5.4 Hemoglobin 14.0 g/dL N 12.0-16.0 Hematocrit 42 % N 35-47 Mean Corpuscular Volume 94 fL N 80-97 Mean Corpuscular Hemoglobin 31 pg N 27-31 Mean Corpuscular HGB Conc 33 g/dL N 31-36 Red Cell Distribution Width 13 % N 10.5-15 Platelet Count 204 10^3/uL N 150-450 Mean Platelet Volume 8 um3 N 7.4-10.4 Abs Neutrophils 2.9 10^3/uL N 1.5-7.7 Abs Lymphocytes 1.3 10^3/uL N 1.0-4.8 Abs Monocytes 0.4 10^3/uL N 0-0.8 Abs Eosinophils 0.1 10^3/uL N 0-0.6 Abs Basophils 0.1 10^3/uL N 0-0.2 Abs Nucleated RBC 0 10^3/uL N Granulocyte % 60.9 % N 38-83 Lymphocyte % 27.4 % N 25-47 Monocyte % 8.2 % N 1-9 Eosinophil % 2.1 % N 0-6 Basophil % 1.4 % N 0-2 Nucleated Red Blood Cells % 0 N Laboratory test 10/06/2015 [facility] TSH (Thyroid 2.03 ?IU/mL N 0.34 -5.60 finding [phone] Stim Horm) Magnesium 2.2 mg/dL N 1.9-2.7 Vitamin D Total 25(Oh) 26.9 ng/mL Low 30-50 Comp Metabolic Panel 10/06/2015 [facility] Sodium 133 mmol/L N 133- 145 [phone] Potassium 4.3 mmol/L N 3.5-5.0 Chloride 96 mmol/L Low 101-111 Co2 Carbon Dioxide 30 mmol/L N 22-32 Anion Gap 7 mmol/L N 2-11 Glucose 86 mg/dL N 70-100 Blood Urea Nitrogen 13 mg/dL N 6-24 Creatinine 0.62 mg/dL N 0.51-0.95 BUN/Creatinine Ratio 21.0 High 8-20 Calcium 9.2 mg/dL N 8.6-10.3 Total Protein 7.2 g/dL N 6.4-8.9 Albumin 4.2 g/dL N 3.2-5.2 Globulin 3.0 g/dL N 2-4 Albumin/Globulin Ratio 1.4 N 1-3 Total Bilirubin 0.50 mg/dL N 0.2-1.0 Alkaline Phosphatase 114 U/L High 34-104 Alt 9 U/L N 7-52 Ast 19 U/L N 13-39 Egfr Non- 92.4 N >60 Egfr 118.8 N >60 11 Laboratory test 12/25/2014 [facility] Urine Culture And SEE RESULT 12 finding [phone] Sensitivities BELOW CBC Auto Diff 10/14/2014 [facility] White Blood Count 4.8 10^3/uL N 4.8-10 13 [phone] .[phone] Red Blood Count 4.13 10^6/uL N 4.0-5.4 Hemoglobin 13.2 g/dL N 12.0-16.0 Hematocrit 40 % N 35-47 Mean Corpuscular Volume 97 fL N 80-97 Mean Corpuscular Hemoglobin 32 pg High 27-31 Mean Corpuscular HGB Conc 33 g/dL N 31-36 Red Cell Distribution Width 13 % N 10.5-15 Platelet Count 215 10^3/uL N 150-450 Mean Platelet Volume 9 um3 N 7.4-10.4 Abs Neutrophils 3.1 10^3/uL N 1.5-7.7 Abs Lymphocytes 1.2 10^3/uL N 1.0-4.8 Abs Monocytes 0.5 10^3/uL N 0-0.8 Abs Eosinophils 0.1 10^3/uL N 0-0.6 Abs Basophils 0.1 10^3/uL N 0-0.2 Abs Nucleated RBC 0 10^3/uL N Granulocyte % 63.8 % N 38-83 Lymphocyte % 23.8 % Low 25-47 Monocyte % 9.4 % High 1-9 Eosinophil % 1.6 % N 0-6 Basophil % 1.4 % N 0-2 Nucleated Red Blood Cells % 0.1 N Laboratory test 10/14/2014 [facility] TSH (Thyroid 1.22 ?IU/mL N 0.34 -5.60 14 finding [phone] Stim Horm) Comp Metabolic 10/14/2014 [facility] Sodium 136 mmol/L N 133-145 Panel [phone] Potassium 4.1 mmol/L N 3.5-5.0 Chloride 102 mmol/L N 101-111 Co2 Carbon Dioxide 31 mmol/L N 22-32 Anion Gap 3 mmol/L N 2-11 Glucose 75 mg/dL N 70-100 Blood Urea Nitrogen 14 mg/dL N 6-24 Creatinine 0.67 mg/dL N 0.51-0.95 BUN/Creatinine Ratio 20.9 High 8-20 Calcium 8.8 mg/dL N 8.6-10.3 Total Protein 6.6 g/dL N 6.4-8.9 Albumin 3.9 g/dL N 3.2-5.2 Globulin 2.7 g/dL N 2-4 Albumin/Globulin Ratio 1.4 N 1-3 Total Bilirubin 0.50 mg/dL N 0.2-1.0 Alkaline Phosphatase 88 U/L N 34-104 Alt 9 U/L N 7-52 Ast 17 U/L N 13-39 Egfr Non- 84.7 N >60 Egfr 108.9 N >60 15 Surgical 08/22/2014 [facility] S RUN DATE: 16 Pathology [phone] 08/26/ <SEE NOTE> Surgical 05/30/2014 [facility] S RUN DATE: 17 Pathology [phone] 06/03/ <SEE NOTE> Xray 2014 [facility] Medicine X-Ray, Thoracic No acute 18 Spine, 2 Views process Laboratory test 10/15/2013 In House Occult Blood - negative x3 finding Stool Urine 10/15/2013 [facility] Ur Microalbumin 5.0 mg/dL <30 19 Microalbumin [phone] (mg/L) Random Urine Creatinine 93.87 mg/dL Urine Microalbumin/Creatinine 5.3 Less Than 31 Laboratory test 03/31/2013 [facility] Troponin I 0.01 ng/mL 0-0.06 20 finding [phone] CBC Auto Diff 03/30/2013 [facility] White Blood 5.9 10^3/uL 4.8- 10.8 [phone] Count Red Blood Count 4.03 10^6/uL 4.0-5.4 [...] Cells % 0.1 Comp Metabolic Panel 03/30/2013 [facility] Sodium 137 mmol/L 133- 145 [phone] Potassium 4.0 mmol/L 3.5-5.0 Chloride 99 mmol/L [...] 153.1 >60 21 Laboratory test finding 03/30/2013 [facility] Phosphorus 3.8 mg/dL 2.4-4.7 [phone] Magnesium 2.2 mg/dL 1.7-2.6 Troponin I 0.01 [...] D deficiency has been defined by the [place] of [employer] and an Endocrine Society practice guideline as a level of serum 25-OH vitamin D less than 20 ng/mL (1,2). The Endocrine Society went on to further define vitamin D insufficiency as a level between 21 and 29 ng/mL (2). 1. IOM ([place] of [employer]). 2010. Dietary reference intakes for calcium and D. [place]: The National Academies Press. 2. Gisel MF, Evonne MATHIS, Jessica PONCE, et al. Evaluation, treatment, and prevention of vitamin D deficiency: an Endocrine Society clinical practice guideline. JCEM. 2010; 96(7):1911-30. Performed at: RN - [facility] [address] [id number] [employer]mill Mechanic: Tiffany Whyte MD, Phone: [phone] 4 Because ethnic data is not always [...] 5 Kidney failure <15 (or dialysis) 5 [id number] 6 [id number] 7 SEE RESULT BELOW Name: ASHER GARDUNO : [address]: Godfrey Mcwilliams MD Acct: [id number] Unit: [id number] AGE: 81 Location: [facility] Re01/06/17 SEX: F Status: REG REF SPEC: [id number] NARCISO: 01/06/17-[address] [facility] [address]: Godfrey Mcwilliams MD REQ: [id number] RECD: 01/06/17 STATUS: MONICA BATISTA DR: Naga Childers MD _ ORDERED: LEVEL 4 COMMENTS: [id number] FINAL DIAGNOSIS Skin, left superior nasolabial fold, excision: -- Basal cell carcinoma, focal, superficial type. -- Prior surgical site related changes. -- Deep, tip, and lateral margins of resection are clear. CLINICAL HISTORY [place] [facility] [id number] PRE-OPERATIVE DIAGNOSIS Basal cell carcinoma, suture arora 12:00 superior apex margin GROSS DESCRIPTION The specimen is received in formalin labeled, Excision Basal Cell Carcinoma Left Superior Nasolabial Fold, Suture Arora 12:00 Superior [place] Margin, and consists of a 3.5 x [...] performed at Main Lab DEPARTMENT OF PATHOLOGY, [address] [address] Scooby Rangel M.D. Director [facility] # [id number] SEE RESULT BELOW Name: ASHER GARDUNO Balaji : [address]: Regan Thomas DO Acct: [id number] Unit: [id number] AGE: 81 Location: [facility] Re10/06/16 SEX: F Status: REG REF SPEC: [id number] NARCISO: 10/06/16-[address]: Regan Thomas DO REQ: [id number] RECD: 10/06/16 STATUS: SOUT _ ORDERED: LEVEL 4 COMMENTS: [id number] FINAL DIAGNOSIS Skin, left face cheek, shave [...] performed at Main Lab DEPARTMENT OF PATHOLOGY, [address] [place] [address] Scooby Rangel M.D. Director [facility] # [id number] 9 Increased concentration of bowel and gas in right lower quadrant. 10 Reference Range and Interpretation: TnI (ng/mL) Interpretation Less Than 0.03 ng/mL Not supportive of diagnosis of AR 0.03 - 0.50 ng/mL Indeterminate: suggest serial studies if clinically indicated. Greater than 0.5 ng/mL Consistent with diagnosis of AR 11 Because ethnic data is not always [...] [address]: Maribel Flores MD Acct: [id number] Unit: [id number] AGE: 79 Location: [facility] Re12/25/14 SEX: F Status: DEP ER SPEC: [id number] NARCISO: 12/25/14-[address]: Maribel Flores MD REQ: [id number] RECD: 12/26/14 STATUS: TISH BATISTA DR: Regan Thomas DO _ SOURCE: URINE SPDESC: ORDERED: Urine Culture Procedure Result Verified Site Urine Culture Final 12/28/14- 920 ML Organism 1 NORMAL JUAN JOSE [place] Count 10-25,000 (Moderate) CFU/ML * ML - MAIN LAB ([facility]) . END OF REPORT * ML=Testing performed at Main Lab DEPARTMENT OF PATHOLOGY, [facility] [address] [place], [place] [address] Scooby Rangel M.D. Director [facility] # [id number] 13 Vitamin D not done by lab, [...] <15 (or dialysis) 16 RUN DATE: 08/26/14 [facility] LAB LIVE PAGE 1 RUN TIME: 60[address] [facility] [employer] [place], [place] [address] Specimen Inquiry Name: ASHER GARDUNO : [address]: Godfrey Mcwilliams MD Acct: [id number] Unit: [id number] AGE: 79 Location: [facility] Re08/22/14 SEX: F Status: REG REF SPEC: [id number] NARICSO: 08/22/140945 [facility] DR: Godfrey Mcwilliams MD REQ: [id number] RECD: 08/22/14 STATUS: MONICA BATISTA DR: Regan Thomas DO _ ORDERED: LEVEL IV FINAL DIAGNOSIS Skin, left side of nose, reexcision: -- Focal residual basal cell carcinoma, superficial. -- Deep tip and lateral margins are clear. CLINICAL HISTORY Previous biopsy [id number] PRE-OPERATIVE DIAGNOSIS Basal cell carcinoma; suture arora 12 o'clock superior apex margin GROSS DESCRIPTION The specimen is received in formalin labeled, Reexcision Basal Cell Carcinoma Left Side of Nose, Suture Arora 12:00 Superior [place] Margin, and consists of a 1.7 x [...] performed at Main Lab DEPARTMENT OF PATHOLOGY, [facility] [place] [place], [place] [address] Scooby Rangel M.D. Director [facility] # [id number] 17 RUN DATE: 06/03/14 [facility] LAB LIVE PAGE 1 RUN TIME: 1226 [facility] [employer] [place], [place] [address] Specimen Inquiry Name: ASHER GARDUNO : [address]: Godfrey Mcwilliams MD Acct: [id number] Unit: [id number] AGE: 79 Location: [facility] Re05/30/14 SEX: F Status: REG REF SPEC: [id number] NARCISO: 05/30/14-[address] [facility] [address]: Godfrey Mcwilliams MD REQ: [id number] RECD: 05/30/14 STATUS: MONICA BATISTA DR: Regan [...] a 0.8 x 0.4 x 0.2 cm baig-bealuieu irregular to elliptical portion of skin. There is an eccentric 0.3 x 0.3 cm brown-black slightly raised area. The specimen is inked, bisected and submitted entirely in one cassette. Signed (signature on file) Scooby Rangel MD 1227 END OF REPORT * ML=Testing performed at Main Lab DEPARTMENT OF PATHOLOGY, [address] [place] [address] Scooby Rangel M.D. Director [facility] # [id number] 18 Athersclerotic great vessels no fractures 19 Microalbuminuria in a random sample is defined as: Microalbumin/Creatinine ratio of 30-299 ug/mg. 20 Reference Range and Interpretation: TnI (ng/mL) Interpretation Less Than 0.06 ng/mL Not supportive of diagnosis of AR 0.06 - 0.50 ng/mL Indeterminate: suggest serial studies if clinically indicated. Greater than 0.5 ng/mL Consistent with diagnosis of AR 21 Because ethnic data is not always [...] 0.06 ng/mL Not supportive of diagnosis of AR 0.06 - 0.50 ng/mL Indeterminate: suggest serial studies if clinically indicated. Greater than 0.5 ng/mL Consistent with diagnosis of AR Procedures Date Code Description Status 11/15/2018 72410 Electrocardiogram Complete Completed 04/16/2018 56914 Dexa Bone Density Study One Or More Sites Axial Completed Skeleton 04/06/2018 03980 X-Ray Chest 2 V Completed 10/03/2017 69608 Brief Emotional/Behav Assessment W/ Scoring Doc Per Completed Standard Inst 07/10/2017 95907 Control Nosebleed Anterior Simple Completed 10/06/2016 31688 Biopsy Skin Lesion Single Completed 11/05/2015 90984 Xray Abdomen Upright/Flat Abd Completed 10/06/2015 83890 Dexa Bone Density Study One Or More Sites Axial Completed Skeleton 2014 27485 Omt 3 To 4 Body Regions Involved Completed 2014 81463 X-Ray, Thoracic Spine, Ap & Lat Completed 10/15/2013 04005118 Mammogram Completed Encounters Type Date Location Provider Dx Diagnosis Office Visit 11/15/2018 Main Office Regan Thomas, I48.2 Chronic atrial 2:30p D.O. fibrillation I10 Essential (primary) hypertension R05 Cough R19.7 Diarrhea, unspecified R07.89 Other chest pain J44.1 Chronic obstructive pulmonary disease w (acute) exacerbation Office Visit 04/16/2018 10:00a Main Office Regan Thomas, Z78.0 Asymptomatic D.O. menopausal state E55.9 Vitamin D deficiency, unspecified I48.2 Chronic atrial fibrillation Z00.01 Encounter for general adult medical exam w abnormal findings I10 Essential (primary) hypertension K44.9 Diaphragmatic hernia without obstruction or gangrene Z79.899 Other fpc (current) drug therapy M81.0 Age-related osteoporosis w/o current pathological fracture Office Visit 04/06/2018 2:00p Main Office Regan Thomas, I48.2 Chronic atrial D.O. fibrillation J06.9 Acute upper respiratory infection, unspecified I10 Essential (primary) hypertension R06.02 Shortness of breath K44.9 Diaphragmatic hernia without obstruction or gangrene Z02.2 Encounter for exam for admission to residential institution Office Visit 03/24/2018 9:30a Main Office Trenanaty Jenningslaurie I48.2 Chronic atrial P.A. fibrillation R11.2 Nausea with vomiting, unspecified J06.9 Acute upper respiratory infection, unspecified Z79.899 Other exterminator helper (current) drug therapy Office Visit 07/10/2017 4:30p Main Office Ngaa Childers M.D. R04.0 Epistaxis Z71.89 Other specified counseling I48.2 Chronic atrial fibrillation Office Visit 03/31/2017 2:45p Main Office Regan Thomas I48.2 Chronic atrial D.O. 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 fibrillation J04.0 Acute laryngitis Office Visit 04/16/2015 8:30a Main Office Regan Thomas I48.2 Chronic atrial D.O. fibrillation I10 Essential (primary) hypertension R20.8 Other disturbances of skin sensation Office Visit 03/06/2015 1:30p Main Office Regan Thomas I48.2 Chronic atrial D.O. fibrillation I10 Essential [...] Malignant Neoplasms Colon 401.9 Hypertension Unspec V06.1 Ngrwxoxdfz-Vbivisj-Ouhmheqc Combined (DTaP) V07.2 Prophylactic Immunotherapy 427.31 Atrial Fibrillation V65.40 Counseling Other Unspec NOS Office Visit 04/04/2013 8:45a Main Office Regan Thomas, 427.31 Atrial Fibrillation D.O. 401.9 Hypertension Unspec 786.50 Pain Chest Unspec Office Visit 03/26/2013 2:00p Main Office Regan Thomas, 401.9 Hypertension Unspec D.O. 427.31 Atrial Fibrillation v03.82 Streptococcus Pneumoniae Vaccination Spec Other v07.2 Prophylactic Immunotherapy Plan of Treatment Future Appointment(s):11/23/2018 3:30 pm - Regan Thomas D.O. at Main Giunae7711/15/2018 - Rgean Thomas D.O.I48.2 Chronic atrial vqlmbxvpnxynZ93 Essential (primary) obwdzteanwpzG45 SrxhlB41.7 Diarrhea, uwkiiyqwmrxJ15.89 Other chest painJ44.1 Chronic obstructive pulmonary disease with (acute) exacerbatFollow up:as scheduled
--- OUTSIDE RECORDS SUMMARY | 2018-12-09 08:24 | XMS REPORT | Continuity of Care Document ---
:1935 External Reference #:[id number] Author Name Regan Thomas D.O. Address [address] [place] [address] Care Team Providers Name Role Phone HCP/LW on file Primary Care Physician Unavailable Payers Date Identification Numbers Payment Provider Subscriber Effective: 1999 Policy Number: [id number] [employer] Asher Garduno PayID: [id number] [address] [place] [address] Policy Number: [id number] [employer] Asher Carpio Shaan [address] [place] [address] Problems Active Problems Provider Date Essential hypertension [...] years. 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 ETOH Use Occassional Alcohol Recreational Drug Use [...] D.O. Tablets Diltiazem HCL ER Beads 1 cap by mouth 90caps I48.2 Regan Thomas, 2018 every day D.O. 180mg Caps ER 24HR (afib) I10 Vitamin C daily Unknown 10/05/2016 500mg Capsules Multivitamin Adult 1 by mouth every Unknown 10/05/2016 W/Calcium And Iron day Tablets Digoxin 1 tab by mouth 90tabs I48.2 Regan Thomas, 12/10/2013 250mcg Tablets every day (afib) D.O. Metoprolol Succinate ER 1 tab by mouth 90tabs I48.2 Regan Thomas, 2013 25mg every day (afib) D.O. Tablets ER 24HR I10 History Medications Calcitonin ([place]) Inhale 1 spray into 11.1ml [facility], 04/16/2018 - nostril daily in 1 Nish Spears 04/19/2018 200Unit/Act nostril, alternating Solution nostrils daily for postmenopausal osteoporosis Azithromycin 2 tabs day one and 1 6tabs [facility], 03/30/2018 - 250mg tab days 2-5 Akosua Nielson 04/05/2018 Tablets Vitamin D3 2 tabs daily 180tabs E55.9 [facility], 10/20/2017 - 400Unit Denis SpearsO. 04/05/2018 Tablets N/B Vitamin D3 Take 1 Capsule By 90units William, 09/19/2017 - 5,000Iu (Lexii)SG Mouth Every Day Denis SpearsOVlad 10/02/2017 CP 5000 Flonase Allergy 2 sprays twice a day 47.400ml [facility], 10/10/2016 - Relief until better. Denis SpearsOVlad 07/09/2017 50mcg/Act Suspension Alendronate Sodium take with a full 12tabs [facility], 10/07/2015 - glass of water (6 to Sreekanth Spears.OVlad 10/29/2015 70mg Tablets 8 ounces; 180 to 240 ml) and avoid lying down for at least 30 minutes 1x/weekly on sun Vitamin D3 Maximum 1 by mouth every day 90caps [facility], 10/07/2015 - Strength Sreekanth Spears.O. 10/20/2017 5000Unit Capsules Robitussin DM take 10 milliliters 118ml [facility], 07/31/2015 - by mouth every 4 Sreekanth Spears.O. 09/11/2015 100-10mg/5ML Syrup hours as needed for cough Benzonatate 1 by mouth three 90caps R05 [facility], 07/31/2015 - 200mg times a day as needed Sreekanth Spears.OVlad 08/30/2015 Capsules cough Aspirin 1 every day for heart 90units I48.2 [facility], 04/16/2015 - 81mg Sreekanth Spears.O. 07/21/2015 Chewtabs Levaquin 1 by mouth every day Unknown 03/03/2015 - 500mg X 7 days 03/10/2015 Tablets Robitussin 1 tablet po every 12 Unknown 03/03/2015 - Cough+Chest hours 04/02/2015 Congestion DM Ultram 1 tab by mouth four 20tabs 724.1 [facility], 2014 - 50mg Tablets times a day as needed Regan D.OVlad 02/25/2014 Flexeril 1 by mouth three 90tabs Unknown 02/04/2014 - 10mg times a day do not 03/06/2014 Tablets operate heavy equipment while on meds, prn Naproxen 1 by mouth twice a 60tabs Unknown 02/04/2014 - Tablets day w/ food 03/06/2014 Digoxin 1 tablet by mouth 90units 427.31 [facility], 09/11/2013 - 0.25mg/ml once daily Sreekanth Spears.OVlad 09/11/2013 Solution Digoxin take 1 tablet daily 90tabs 427.31 [facility], 09/11/2013 - 125mcg for heart rate Denis [...] 600+D3 1 po daily Unknown - 10/15/2013 [id number] Tablets Coq10 1 po daily Unknown - 100mg Capsules 10/15/2013 Multivitamins W/CA 250 1 po qd Unknown - MG-D3 1000 Iu 10/15/2013 Ladies 1 po daily Unknown - Choice-Phytoestrogen 10/15/2013 Vitamin B12 1 po daily Unknown - 500mcg 10/15/2013 Tablets Vitamin B6 1 po daily Unknown - 100mg Tablets 10/15/2013 Raymond Padilla 1 po daily Unknown - 1530mg 10/15/2013 Capsules Vitamin D3 2 po daily Unknown - 1000Unit 10/15/2013 Capsules Immunizations CPT Code Status Date Vaccine Lot # [id number] Given 01/13/2018 Influenza Vaccine Split Virus Preservative Free [place] Use [id number] Given 01/29/2017 Influenza Virus Vaccine, Quadrivalent, Split, Preservative Free 09156 Given 09/12/2015 Prevnar 13 [id number] 85112 Given 10/15/2013 Adacel or Boostrix, TDaP [id number] 25809 Given 03/31/2013 Flu, Split Virus 3Yrs 10745 Given 03/26/2013 Pneumococcal Immunization [id number] U-Flu Refused 03/24/2018 Influenza,Unspecified [id number] Refused 07/10/2017 Shingrix Zoster (Shingles) Vaccine (HZV) [...] H/L Range Note CBC Auto Diff 07/18/2018 [facility]. White Blood 4.7 K/uL Normal 3.1-10.7 1 LABORATORY Count [phone] Red Blood Count 4.55 M/uL Normal 3.90-5.40 [...] 40.4-72.8 Lymph % 20.5 % Normal 20.0-42.0 [place] % 8.2 % Normal 4.3-13.2 Eo% 1.5 % Normal 0.0-6.6 Bas% 0.8 % Normal 0.0-1.1 Neut# 3.27 K/uL Normal 1.8-7.0 Lymph # 0.97 K/uL Low 1.0-4.0 [place] # 0.39 K/uL Normal 0.3-0.9 Eos # 0.07 K/uL Normal 0.0-0.5 Baso # 0.04 K/uL Normal 0.0-0.1 Comp Metabolic 07/18/2018 [facility] Glucose 96 mg/dL Normal 74-106 Panel LABORATORY [phone] BUN 15 mg/dL Normal 7-18 Creatinine 0.6 [...] 103 U/L Normal 45-117 Laboratory test 07/18/2018 [facility] Thyroid 1.81 Normal 0.30-4.20 finding LABORATORY Stim uIU/mL [phone] Hormone Magnesium 2.3 mg/dL Normal 1.8-2.4 Vitamin D,25-Hydroxy 55.0 ng/mL 30.0-100.0 3 Xray 04/16/2018 [facility] Dexa Bone Density osteoporosis Study One Or More Sites Axial Skeleton Ua Inhouse 03/24/2018 In House Ua Ketones trace Ua Specific [place] 1.010 Ua PH 6.5 Ua Protein trace CBC Auto Diff 10/03/2017 [facility] White Blood 5.6 10^3/uL Normal 3.5-10.8 [phone] Count Red Blood Count 4.43 10^6/uL Normal [...] Cells % 0.1 Comp Metabolic Panel 10/03/2017 [facility] Sodium 137 mmol/L Low 139- 145 [phone] Potassium 4.7 mmol/L Normal 3.5-5.0 Chloride 99 [...] Egfr 108.1 >60 4 Laboratory test 10/03/2017 [facility] TSH (Thyroid 1.59 mcIU/mL Normal 0.34-5.60 finding [phone] Stim Horm) Magnesium 2.2 mg/dL Normal 1.9-2.7 Vitamin D Total 25(Oh) 98.8 ng/mL High 20-50 CBC Auto Diff 07/09/2017 [facility] White Blood 5.0 10^3/uL Normal 3.5-10.8 5 [phone] Count Red Blood Count 4.23 10^6/uL Normal [...] Red Blood Cells % 0 Laboratory 02/22/2017 [facility] Digoxin 2.2 ng/ml High 0.8-2.0 test finding [phone] Laboratory 01/06/2017 [facility] Surgical SEE RESULT 6, 7 test finding [phone] Pathology BELOW Laboratory 10/06/2016 [facility] Surgical SEE RESULT 8 test finding [phone] Pathology BELOW Xray 11/05/2015 [facility] X-Ray, no acute 9 Abdomen, process Acute Series, 2 views Laboratory 11/04/2015 [facility] Troponin-I 0.00 ng/mL Normal <0.03 10 test finding [phone] (TnI) CBC Auto Diff 10/06/2015 [facility] White Blood 4.7 Normal 3.5-10.8 [phone] Count 10^3/uL Red Blood Count 4.50 10^6/uL Normal 4.0-5.4 [...] Nucleated Red Blood Cells % 0 Normal Xray 10/06/2015 [facility] Dexa Bone Osteoporosis Density Study One Or More Sites Axial Skeleton Comp Metabolic 10/06/2015 [facility] Sodium 133 mmol/L Normal 133-14 Panel [phone] Potassium 4.3 mmol/L Normal 3.5-5.0 Chloride 96 [...] Egfr 118.8 Normal >60 11 Laboratory test 10/06/2015 [facility] TSH (Thyroid 2.03 ?IU/mL Normal 0.34-5.60 finding [phone] Stim Horm) Magnesium 2.2 mg/dL Normal 1.9-2.7 Vitamin D Total 25(Oh) 26.9 ng/mL Low 30-50 Laboratory test 12/25/2014 [facility] Urine Culture And SEE RESULT 12 finding [phone] Sensitivities BELOW CBC Auto Diff 10/14/2014 [facility] White Blood Count 4.8 10^3/uL Normal 4.8-1 13 [phone] 0.8 Red Blood Count 4.13 10^6/uL Normal [...] Cells % 0.1 Normal Laboratory test 10/14/2014 [facility] TSH (Thyroid 1.22 ?IU/mL Normal 0.34-5.60 14 finding [phone] Stim Horm) Comp Metabolic 10/14/2014 [facility] Sodium 136 mmol/L Normal 133- 145 Panel [phone] Potassium 4.1 mmol/L Normal 3.5-5.0 Chloride 102 [...] Egfr 108.9 Normal >60 15 Surgical 08/22/2014 [facility] S RUN DATE: 16 Pathology [phone] 08/26/ <SEE NOTE> Surgical 05/30/2014 [facility] S RUN DATE: 17 Pathology [phone] 06/03/ <SEE NOTE> Xray 2014 [facility] X-Ray, Thoracic No acute 18 Spine, 2 Views process Urine 10/15/2013 [facility] Ur Microalbumin 5.0 mg/dL <30 19 Microalbumin [phone] (mg/L) Random Urine Creatinine 93.87 mg/dL Urine Microalbumin/Creatinine 5.3 Less Than 31 Laboratory test 10/15/2013 In House Occult Blood - negative x3 finding Stool Laboratory test 03/31/2013 [facility] Troponin I 0.01 ng/mL 0-0.06 20 finding [phone] CBC Auto Diff 03/30/2013 [facility] White Blood 5.9 10^3/uL 4.8-10. [phone] Count 8 Red Blood Count 4.03 10^6/uL 4.0-5.4 Hemoglobin [...] Cells % 0.1 Comp Metabolic Panel 03/30/2013 [facility] Sodium 137 mmol/L 133- 145 [phone] Potassium 4.0 mmol/L 3.5-5.0 Chloride 99 mmol/L [...] 153.1 >60 21 Laboratory test finding 03/30/2013 [facility] Phosphorus 3.8 mg/dL 2.4-4.7 [phone] Magnesium 2.2 mg/dL 1.7-2.6 Troponin I 0.01 [...] D deficiency has been defined by the [place] of [employer] and an Endocrine Society practice guideline as a level of serum 25-OH vitamin D less than 20 ng/mL (1,2). The Endocrine Society went on to further define vitamin D insufficiency as a level between 21 and 29 ng/mL (2). 1. IOM ([place] of [employer]). 2010. Dietary reference intakes for calcium and D. [place]: The National Academies Press. 2. Gisel MF, Evonne MATHIS, Jessica PONCE, et al. Evaluation, treatment, and prevention of vitamin D deficiency: an Endocrine Society clinical practice guideline. JCEM. 2010; 96(7):1911-30. Performed at: RN - [facility] [address] [id number] Pump Station Operator: Tiffany Whyte MD, Phone: [phone] 4 Because ethnic data is not always [...] 5 Kidney failure <15 (or dialysis) 5 [id number] 6 [id number] 7 SEE RESULT BELOW Name: ASHER GARDUNO : [address]: Godfrey Mcwilliams MD Acct: [id number] Unit: [id number] AGE: 81 Location: [facility] Re01/06/17 SEX: F Status: REG REF SPEC: [id number] NARCISO: 01/06/17-105 [facility] DR: Godfrey Mcwilliams MD REQ: [id number] RECD: 01/06/17-160 STATUS: MONICA BATISTA DR: Naga Childers MD _ ORDERED: LEVEL 4 COMMENTS: [id number] FINAL DIAGNOSIS Skin, left superior nasolabial fold, excision: -- Basal cell carcinoma, focal, superficial type. -- Prior surgical site related changes. -- Deep, tip, and lateral margins of resection are clear. CLINICAL HISTORY See [facility] [id number] PRE-OPERATIVE DIAGNOSIS Basal cell carcinoma, suture arora 12:00 superior apex margin GROSS DESCRIPTION The specimen is received in formalin labeled, Excision Basal Cell Carcinoma Left Superior Nasolabial Fold, Suture Arora 12:00 Superior [place] Margin, and consists of a 3.5 x [...] performed at Main Lab DEPARTMENT OF PATHOLOGY, [address] [place] [address] Scooby Rangel M.D. Director [facility] # [id number] 8 SEE RESULT BELOW Name: ASHER GARDUNO : [address]: Regan Thomas DO Acct: [id number] Unit: [id number] AGE: 81 Location: [facility] Re10/06/16 SEX: F Status: REG REF SPEC: [id number] NARCISO: 10/06/16-1155 [facility] DR: Regan Thomas DO REQ: [id number] RECD: 10/06/16 STATUS: SOUT _ ORDERED: LEVEL 4 COMMENTS: [id number] FINAL DIAGNOSIS Skin, left face cheek, shave [...] performed at Main Lab DEPARTMENT OF PATHOLOGY, [address] [place] [address] Scooby Rangel M.D. Director [facility] # [id number] 9 Increased concentration of bowel and gas in right lower quadrant. 10 Reference Range and Interpretation: TnI (ng/mL) Interpretation Less Than 0.03 ng/mL Not supportive of diagnosis of NM 0.03 - 0.50 ng/mL Indeterminate: suggest serial studies if clinically indicated. Greater than 0.5 ng/mL Consistent with diagnosis of NM 11 Because ethnic data is not always [...] [address]: Maribel Flores MD Acct: [id number] Unit: [id number] AGE: 79 Location: [facility] Re12/25/14 SEX: F Status: DEP ER SPEC: [id number] NARCISO: 12/25/[address]: Maribel Flores MD REQ: [id number] RECD: 12/26/14 STATUS: TISH BATISTA DR: Regan Thomas DO _ SOURCE: URINE SPDESC: ORDERED: Urine Culture Procedure Result Verified Site Urine Culture Final 12/28/14- 920 ML Organism 1 NORMAL JUAN JOSE Austin Count 10-25,000 (Moderate) CFU/ML * ML - MAIN LAB (PSC1) . END OF REPORT * ML=Testing performed at Main Lab DEPARTMENT OF PATHOLOGY, [facility] [employer] [place], [place] [address] Scooby Rangel M.D. Director [facility] # [id number] 13 Vitamin D not done by lab, [...] <15 (or dialysis) 16 RUN DATE: 08/26/14 [facility] LAB LIVE PAGE 1 RUN TIME: 0100 [facility] [employer] [place], [place] [address] Specimen Inquiry Name: ASHER GARDUNO : [address]: Godfrey Mcwilliams MD Acct: [id number] Unit: [id number] AGE: 79 Location: [facility] Re08/22/14 SEX: F Status: REG REF SPEC: [id number] NARCISO: 08/22/140945 [facility] DR: Godfrey Mcwilliams MD REQ: [id number] RECD: 08/22/14 STATUS: MONICA BATISTA DR: Regan Thomas DO _ ORDERED: LEVEL IV FINAL DIAGNOSIS Skin, left side of nose, reexcision: -- Focal residual basal cell carcinoma, superficial. -- Deep tip and lateral margins are clear. CLINICAL HISTORY Previous biopsy [id number] PRE-OPERATIVE DIAGNOSIS Basal cell carcinoma; suture arora 12 o'clock superior apex margin GROSS DESCRIPTION The specimen is received in formalin labeled, Reexcision Basal Cell Carcinoma Left Side of Nose, Suture Arora 12:00 Superior [place] Margin, and consists of a 1.7 x [...] performed at Main Lab DEPARTMENT OF PATHOLOGY, [facility] [employer] [place], [place] [address] Scooby Rangel M.D. Director [facility] # [id number] 17 RUN DATE: 06/03/14 [facility] LAB LIVE PAGE 1 RUN TIME: 1227 [facility] [employer] [place], [place] [address] Specimen Inquiry Name: ASHER GARDUNO : [address]: Godfrey Mcwilliams MD Acct: [id number] Unit: [id number] AGE: 79 Location: [facility] Re05/30/14 SEX: F Status: REG REF SPEC: [id number] NARCISO: 05/30/14-1410 [facility] DR: Godfrey Mcwilliams MD REQ: [id number] RECD: 05/30/14 STATUS: MONICA BATISTA DR: Regan [...] performed at Main Lab DEPARTMENT OF PATHOLOGY, [address] [place] [address] Scooby Rangel M.D. Director [facility] # [id number] 18 Athersclerotic great vessels no fractures 19 Microalbuminuria in a random sample is defined as: Microalbumin/Creatinine ratio of 30-299 ug/mg. 20 Reference Range and Interpretation: TnI (ng/mL) Interpretation Less Than 0.06 ng/mL Not supportive of diagnosis of NM 0.06 - 0.50 ng/mL Indeterminate: suggest serial studies if clinically indicated. Greater than 0.5 ng/mL Consistent with diagnosis of NM 21 Because ethnic data is not always [...] 0.06 ng/mL Not supportive of diagnosis of NM 0.06 - 0.50 ng/mL Indeterminate: suggest serial studies if clinically indicated. Greater than 0.5 ng/mL Consistent with diagnosis of NM Procedures Date Code Description Status 11/23/2018 45287 Spirometry Completed 11/15/2018 04259 Electrocardiogram Complete Completed 04/16/2018 12497 Dexa Bone Density Study One Or More Sites Axial Completed Skeleton 04/06/2018 06044 X-Ray Chest 2 V Completed 10/03/2017 04230 Brief Emotional/Behav Assessment W/ Scoring Doc Per Completed Standard Inst 07/10/2017 66556 Control Nosebleed Anterior Simple Completed 10/06/2016 56318 Biopsy Skin Lesion Single Completed 11/05/2015 31870 Xray Abdomen Upright/Flat Abd Completed 10/06/2015 18416 Dexa Bone Density Study One Or More Sites Axial Completed Skeleton 2014 03102 Omt 3 To 4 Body Regions Involved Completed 2014 86307 X-Ray, Thoracic Spine, Ap & Lat Completed 10/15/2013 96837472 Mammogram Completed Encounters Type Date Location Provider Dx Diagnosis Office Visit 11/23/2018 Main Office Regan Thomas, Nisha48.2 Chronic atrial 3:30p D.O. fibrillation I10 Essential (primary) hypertension R11.10 Vomiting, unspecified J44.1 Chronic obstructive pulmonary disease w (acute) exacerbation R07.89 Other chest pain Z00.01 Encounter for general adult medical exam w abnormal findings K44.9 Diaphragmatic hernia without obstruction or gangrene J44.9 Chronic obstructive pulmonary disease, unspecified Z68.1 Body mass index (BMI) 19.9 or less, adult Office Visit 11/15/2018 2:30p Main Office Regan Thomas, I48.2 Chronic atrial D.O. fibrillation I10 Essential (primary) hypertension R05 [...] hernia without obstruction or gangrene Z79.899 Other fdc (current) drug therapy M81.0 Age-related osteoporosis w/o current pathological fracture Office Visit 04/06/2018 2:00p Main Office Regan Thomas I48.2 Chronic atrial D.O. fibrillation J06.9 Acute upper respiratory infection, unspecified I10 Essential (primary) hypertension R06.02 Shortness of breath K44.9 Diaphragmatic hernia without obstruction or gangrene Z02.2 Encounter for exam for admission to residential institution Office Visit 03/24/2018 9:30a Main Office Trena Nielsen I48.2 Chronic atrial P.A. fibrillation R11.2 Nausea with vomiting, unspecified J06.9 Acute upper respiratory infection, unspecified Z79.899 Other fdc (current) drug therapy Office Visit 07/10/2017 4:30p Main Office Naga Childers M.D. R04.0 Epistaxis Z71.89 Other specified counseling I48.2 Chronic atrial fibrillation Office Visit 03/31/2017 2:45p Main Office Regan Thomas I48.2 Chronic atrial D.O. fibrillation I10 Essential (primary) hypertension C44.310 Basal cell carcinoma of skin of unspecified parts of face Office Visit 10/06/2016 8:55a Main Office Regan Thomas I48.2 Chronic atrial D.O. fibrillation I10 Essential (primary) hypertension Z00.01 Encounter for general adult medical exam w abnormal findings R23.9 Unspecified skin changes Office Visit 11/05/2015 1:15p Main Office Regan Thomas, R10.84 Generalized D.O. 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 fibrillation J04.0 Acute laryngitis Office Visit 04/16/2015 8:30a Main Office Regan Thomas, I48.2 Chronic atrial D.O. fibrillation I10 Essential (primary) hypertension R20.8 Other disturbances of skin sensation Office Visit 03/06/2015 1:30p Main Office Regna Thomas, I48.2 Chronic atrial D.O. fibrillation I10 [...] Malignant Neoplasms Colon 401.9 Hypertension Unspec V06.1 Jxnurwjvuw-Pstwdey-Zaydswce Combined (DTaP) V07.2 Prophylactic Immunotherapy 427.31 Atrial Fibrillation V65.40 Counseling Other Unspec NOS Office Visit 04/04/2013 8:45a Main Office Regan Thomas, 427.31 Atrial Fibrillation D.O. 401.9 Hypertension Unspec 786.50 Pain Chest Unspec Office Visit 03/26/2013 2:00p Main Office Regan Thomas, 401.9 Hypertension Unspec D.O. 427.31 Atrial Fibrillation v03.82 Streptococcus Pneumoniae Vaccination Spec Other v07.2 Prophylactic Immunotherapy Plan of Treatment Future Appointment(s):05/28/2019 8:55 am - Regan Thomas D.O. at Main Rvrhlm3611/23/2018 - Regan Thomas D.O.I48.2 Chronic atrial adrzlkoectqlA49 Essential (primary) hypertensionFollow up:6 months recheck HTN/AfibR11.10 Vomiting, iimuwzppfspI11.1 Chronic obstructive pulmonary disease with (acute) gcyhcwawkJ17.89 Other chest painZ00.01 Encounter for general adult medical examination with abnormal sdjtiqxrC62.9 Diaphragmatic hernia without obstruction or qubyitsuR86.9 Chronic obstructive pulmonary disease, kjznxpdcntlM94.1 Body mass index (BMI) 19.9 or less, adult
[2018-12-09] MEDS ORDERED: Aspirin 81 mg CHEW TAB* 81 MG TAB.CHEW PO ONE (08:35)
[2018-12-09 08:59] VITALS: BP 146/69
--- NOTE | 2018-12-09 09:00 | UC ---
Dizzy HPI HPI Summary: Pt is accompanied by daughter. Pt presents with c/o "fuzzy head" weakness and feeling "Just off". Pt lives in an assisted living facility, has hx of afib that is unmanaged by medication. - History Of Current Complaint Chief Complaint: UCGeneralIllness Stated Complaint: "FUZZY" BP CHECK Time Seen by Provider: 12/09/18 08:28 Hx Obtained From: Patient ?: No Onset/Duration: Sudden Onset, Lasting Days, Still Present Timing: Constant Severity Initially: Mild Severity Currently: Moderate Pain Intensity: 0 Character: Lightheaded Aggravating Factor(s): Exertion, Position Change Alleviating Factor(s): Nothing Associated Signs And Symptoms: Positive: Negative Related History: Similar Episode/Dx as - afib - Risk Factors Cardiac Risk Factors: Negative CVA Risk Factor: Atrial Fibrillation - Allergies/Home Medications Allergies/Adverse Reactions: Allergies Allergy/AdvReac Type Severity Reaction Status Date / Time alendronate sodium Allergy See Comment Verified 12/09/18 08:29 [From Fosamax] codeine Allergy See Comment Verified 12/09/18 08:29 morphine Allergy Dizziness Verified 12/09/18 08:29 prednisone Allergy See Comment Verified 12/09/18 08:29 PMH/Surg Hx/FS Hx/Imm Hx Previously Healthy: Yes Cardiovascular History: Cardiac Disease, Atrial Fibrillation Other History Of: Anticoagulant Therapy - Surgical History Surgical History: Yes Surgery Procedure, Year, and Place: HYSTERECTOMY, APPY, tonsillectomy - Family History Known Family History: Positive: Cardiac Disease - Social History Occupation: Retired Lives: Assisted Living Alcohol Use: Rare Substance Use Type: None Smoking Status (MU): Never Smoked Tobacco Have You Smoked in the Last Year: No - Immunization History Most Recent Influenza Vaccination: unknown Most Recent Tetanus Shot: unknown Most Recent Pneumonia Vaccination: 2013 Review of Systems All Other Systems Reviewed And Are Negative: Yes Constitutional: Positive: Other - "feeling off" Skin: Positive: Negative Eyes: Positive: Negative ENT: Positive: Negative Respiratory: Positive: Negative Cardiovascular: Positive: Palpitations Genitourinary: Positive: Negative Motor: Positive: Negative Neurovascular: Positive: Negative Musculoskeletal: Positive: Negative Neurological: Positive: Negative Psychological: Positive: Negative Is Patient Immunocompromised?: No Physical Exam Triage Information Reviewed: Yes Appearance: Well-Appearing Vital Signs: Initial Vital Signs Temp 98.4 F 12/09/18 08:25 Pulse 84 12/09/18 08:25 Resp 24 12/09/18 08:25 BP 147/78 12/09/18 08:25 Pulse Ox 97 12/09/18 08:25 Vital Signs Reviewed: Yes Eye Exam: Normal ENT Exam: Normal ENT: Positive: Hearing grossly normal Dental Exam: Normal Neck exam: Normal Respiratory Exam: Normal Cardiovascular: Positive: Other: - irregular, Musculoskeletal Exam: Normal Neurological Exam: Normal Psychological Exam: Normal Skin Exam: Normal Dizzy Course/Dx - Course Course Of Treatment: I discussed with the pt the need to go to the closest emergency room for further evaluation and testing Pt agreed but requested to go [place] [facility] [place] 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 - Differential Dx/Diagnosis Differential Diagnosis/HQI/PQRI: Other - afib Provider Diagnosis: A-fib Discharge - Sign-Out/Discharge Documenting (check all that apply): Patient Departure All imaging exams completed and their final reports reviewed: No Studies - Discharge Plan Condition: Fair Disposition: TRANS HIGHER LVL OF CARE FAC Patient Education Materials: A-fib (Atrial Fibrillation) (ED) Referrals: Regan Thomas DO [Primary Care Provider] - Deidre Jimenez MD [Medical Doctor] - As Soon As Possible - Billing Disposition and Condition Condition: FAIR Disposition: Trans Higher Lvl of Care Fac
== END 2018-12-09 08:50 | disposition short-term general hospital (02) ==
LOC: UCCORT 08:17
DX: I48.91 Unspecified atrial fibrillation (principal); Z79.01 Long term (current) use of anticoagulants; I51.9 Heart disease, unspecified
CPT/HCPCS: 93005; 99213; A9270-GY; G0463

== ENCOUNTER 2018-12-09 09:37 | Inpatient (IN) | payer MEDICARE, OTHER ==
--- NOTE | 2018-12-09 10:08 | ED ---
Neurological HPI - HPI Summary HPI Summary: This patient is an 83 year old F with a hx of a-fib and COPD BIBA to ED via EMS sent from [facility] with a chief complaint of confusion since last night. Patient is accompanied by her daughter. Patient reports being awake off and on all night. She thinks the confusion was present all night, but wasnt awake enough to notice it. Patient reports she would look at the clock and think hard about whether it was 7AM or 7PM. Patient called her daughter at 0730 this morning saying she is fuzzy headed and confused. At urgent are, she found the patient to be in a-fib. Patient does not take medication for a-fib. gave her 4 baby aspirin and told her to come here. In the ED room, patient reports feeling slightly more aware of her surroundings, but she reports she doesnt know whats wrong with her. She states she is primarily worried about what happened last night, since thats when she was most confused. She says it seems like she is in a replay. Denies feeling confused at this time. Patient denies numbness or weakness in the arms, legs, or face, nausea, CP, abdominal pain, or recent falls. - History of Current Complaint Chief Complaint: EDNeurologicalDeficit Stated Complaint: COMMING FROM ON LICENSE OF [facility] ISSUE Time Seen by Provider: 12/09/18 09:51 Hx Obtained From: Patient, Family/Commercial Reporter - Daughter Onset/Duration: Gradual Onset, Started hours ago - Since last night, Still Present Timing: Constant Pain Intensity: 0 Pain Scale Used: 0-10 Numeric Character: Confusion Aggravating: Nothing Alleviating: Nothing Associated Signs and Symptoms: Positive: Confusion. Negative: Weakness, Numbness, Nausea/Vomiting, Chest Pain - Allergy/Home Medications Allergies/Adverse Reactions: Allergies Allergy/AdvReac Type Severity Reaction Status Date / Time alendronate sodium Allergy See Comment Verified 12/09/18 08:29 [From Fosamax] codeine Allergy See Comment Verified 12/09/18 08:29 morphine Allergy Dizziness Verified 12/09/18 08:29 prednisone Allergy See Comment Verified 12/09/18 08:29 PMH/Surg Hx/FS Hx/Imm Hx Endocrine/Hematology History: Denies: Hx Diabetes, Hx Thyroid Disease Cardiovascular History: Reports: Hx Atrial Fibrillation Denies: Hx Hypertension Respiratory History: Reports: Hx Chronic Obstructive Pulmonary Disease (COPD) Denies: Hx Asthma GI History: Denies: Hx Ulcer History: Reports: Hx Kidney Stones - per pt, undiagnosed Sensory History: Reports: Hx Contacts or Glasses Opthamlomology History: Reports: Hx Contacts or Glasses - Surgical History Surgery Procedure, Year, and Place: HYSTERECTOMY, APPY, tonsillectomy Infectious Disease History: No Infectious Disease History: Denies: Hx Clostridium Difficile, Hx Hepatitis, Hx Human Immunodeficiency Virus (HIV), Hx of Known/Suspected MRSA, Hx Shingles, Hx Tuberculosis, Hx Known/ Suspected VRE, Hx Known/Suspected VRSA, History Other Infectious Disease, Traveled Outside the [place] in Last 30 Days - Family History Known Family History: Positive: Cardiac Disease - Social History Alcohol Use: Rare Hx Substance Use: No Substance Use Type: Reports: None Hx Tobacco Use: No Smoking Status (MU): Never Smoked Tobacco Have You Smoked in the Last Year: No Review of Systems Negative: Chest Pain Negative: Abdominal Pain, Nausea Neurological: Other - Confusion Negative: Weakness, Numbness All Other Systems Reviewed And Are Negative: Yes Physical Exam - Summary Physical Exam Summary: Constitutional: elderly female (-) Distressed Skin: Warm, Dry HENT: Normocephalic; Atraumatic Eyes: Conjunctiva normal Neck: Musculoskeletal ROM normal neck. (-) JVD, (-) Stridor, (-) Nuchal rigidity Cardio: irregularly irregular rhythm Pulmonary/Chest wall: Effort normal. (-) Respiratory distress, (-) Wheezes, mild bilateral basilar rhonchi Abd: Soft, (-) tenderness, (-) Distension, (-) Guarding, (-) Rebound Musculoskeletal: (-) Edema Lymph: (-) Cervical adenopathy Neuro: Alert, Oriented x3 Psych: Mood and affect Normal GCS: 15 Triage Information Reviewed: Yes Vital Signs On Initial Exam: Initial Vitals Temp Pulse Resp BP Pulse Ox 97.7 F 82 19 160/90 97 12/09/18 09:44 12/09/18 09:44 12/09/18 09:44 12/09/18 09:44 12/09/18 09:44 Vital Signs Reviewed: Yes Diagnostics - Vital Signs Vital Signs Temp Pulse Resp BP Pulse Ox 12/09/18 09:44 97.7 F 82 19 160/90 97 - Laboratory Result Diagrams: 12/09/18 10:11 08/11/19 10:11 Lab Statement: Any lab studies that have been ordered have been reviewed, and results considered in the medical decision making process. - Radiology CXR Radiology Interpretation Completed By: Radiologist Summary of Radiographic Findings: 1. Advanced chronic obstructive pulmonary disease and emphysema. 2. Bibasilar pneumonia with associated RIGHT larger than LEFT pleural effusions. 3. Stigmata of probable pulmonary arterial hypertension. 4. Evidence for prior pulmonary granulomatous disease. Dr. Lewis has reviewed this radiology report. - CT Brain CT Interpretation Completed By: Radiologist Summary of CT Findings: 1. Advanced involutional change and stigmata of chronic small vessel ischemic disease. 2. Negative for intracranial hemorrhage or CT stigmata of acute or subacute ischemic infarct. Dr. Lewis has reviewed this radiology report. - EKG 1016 Cardiac Rate: NL - 82 BPM EKG Rhythm: Atrial Fibrillation EKG Comparison: No Significant Change - From 2016 Summary of EKG Findings: An EKG at 1016 reveals atrial fibrillation at [address] depressions in V5 and V6, no STEMI, no change from 2016. NIH Scale - NIH Scale Level of Consciousness: Alert/Keenly Responsive Ask Patient the Month and His/Her Age: Both Correct Ask Pt to Open/Close Eyes and Maintenance Mechanic Supervisor/Release Non-Paretic Hand: Both Correctly Best Gaze (Only Horizontal Eye Movement): Normal Visual Field Testing: No Visual Loss Facial Paresis-Pt to Smile & Close Eyes or Grimace Symmetry: Normal/Symmetrical Motor Function - Right Arm: No Drift-Holds 10 Seconds Motor Function - Left Arm: No Drift-Holds 10 Seconds Motor Function - Right Leg: No Drift-Holds 10 Seconds Motor Function - Left Leg: No Drift-Holds 10 Seconds Limb Ataxia-Must be out of Proportion to Weakness Present: Absent Sensory (Use Pinprick to Test Arms/Legs/Trunk/Face): Normal Best Language (Describe Picture, Name Items): No Aphasia Dysarthria (Read Several Words): Normal Extinction and Inattention: No Abnormality Total Score: 0 Re-Evaluation - Re-Evaluation First Eval Re-Evaluation Time: 11:25 Comment: Discussed results with patient. Patient will be admitted to [facility] with dx of PNA. Patient understands and agrees with this plan. Second Eval Re-Evaluation Time: 11:35 Comment: Patient will be treated w Rocephin and Zithromax. Course/Dx - Course Course Of Treatment: 83 year-old female with a history of atrial fibrillation on anticoagulation as well as recently diagnosed COPD who presents with episode of altered mental status/confusion this morning. NIH stroke scale is 0 here, patient not altered. Will work up for AMS/TIA w head CT, labs, UA - Diagnoses Provider Diagnoses: PNA (pneumonia), Hyponatremia - Physician Notifications Discussed Care Of Patient With: Delta Monroe Time Discussed With Above Provider: 11:30 Instructed by Provider To: Admit As Inpatient - Discussed patient case with Dr. Monroe, who accepted the patient for admission to [facility]. Discharge - Sign-Out/Discharge Documenting (check all that apply): Patient Departure - Admit Patient Received Moderate/Deep Sedation with Procedure: No - Discharge Plan Condition: Fair Disposition: ADMITTED TO [facility] Referrals: Regan Thomas DO [Primary Care Provider] - - Billing Disposition and Condition Condition: FAIR Disposition: Admitted to [facility] - Attestation Statements Document Initiated by Palibe: Yes Documenting Scribe: Enrique Candelario Provider For Whom Queta is Documenting (Include Credential): Usha Lewis MD Scribe Attestation: I, Enrique Candelario, scribed for Usha Lewis MD on 12/09/18 at 1322. Scribe Documentation Reviewed: Yes Provider Attestation: The documentation as recorded by the scribeEnrique accurately reflects the service I personally performed and the decisions made by me, Usha Lewis MD Status of Scribe Document: Viewed
[2018-12-09 10:24] LABS: ABS Lymphocytes 0.6 10^3/ul (1.0-4.8); ABS Monocytes 0.5 10^3/ul (0-0.8); ABS Neutrophils 6.5 10^3/ul (1.5-7.7); Eosinophil % 0.4 %; Hematocrit 40 % (35-47); Hemoglobin 13.8 g/dL (12.0-16.0); Lymphocyte % 7.3 %; Mean Corpuscular HGB Conc 34 g/dL (31-36); Mean Corpuscular Hemoglobin 32 pg (27-31); Mean Corpuscular Volume 93 fL (80-97); Mean Platelet Volume 6.8 fL (7.4-10.4); Nucleated Red Blood Cells % 0.1; Platelet Count 333 10^3/uL (150-450); Red Cell Distribution Width 13 % (10-15); White Blood Count 7.6 10^3/uL (3.5-10.8)
[2018-12-09 10:36] LABS: Albumin 3.6 g/dL (3.2-5.2); Albumin/Globulin Ratio 0.9 (1-3); BUN/Creatinine Ratio 23.7 (8-20); Calcium 9.9 mg/dL (8.6-10.3); EGFR African American 117.5 (>60); EGFR Non-African American 97.1 (>60); Potassium 4.7 mmol/L (3.5-5.0); Total Bilirubin 0.5 mg/dL (0.2-1.0); Total Protein 7.6 g/dL (6.4-8.9)
[2018-12-09 10:38] LABS: INR 1.17 (0.82-1.09)
[2018-12-09 10:39] LABS: Troponin I 0.01 ng/mL (<0.04)
[2018-12-09 11:02] LABS: Urine Appearance Cloudy; Urine Bacteria Absent (Absent); Urine Bilirubin Negative (Negative); Urine Blood Negative (Negative); Urine Color Amber; Urine Glucose Negative (Negative); Urine Ketones Trace (Negative); Urine Nitrite Negative (Negative); Urine Protein Negative (Negative); Urine Red Blood Cell 2+(6-10/hpf) (Absent); Urine Specific Gravity 1.023 (1.010-1.030); Urine Urobilinogen Positive (Negative); Urine White Blood Cell Trace(0-5/hpf) (Absent)
[2018-12-09 11:09] LABS: TSH (Thyroid Stimulating Horm) 1.63 mcIU/mL (0.34-5.60)
[2018-12-09] MEDS ORDERED: NS 0.9% 1000 ML** 1,000 ML IV ONE (11:20)
[2018-12-09] MEDS ORDERED: cefTRIAXone(*) 1 GM in NS 0.9% 50 ML* 50 ML IVPB ONE (11:37)
[2018-12-09] MEDS ORDERED: Azithromycin 500 mg/250 ml NS 500 MG/250 ML BAG IVPB ONE (11:37)
[2018-12-09 12:19] LABS: C Reactive Protein 55.76 mg/L (<8.01)
[2018-12-09] MEDS ORDERED: Furosemide IV* 10 MG/ML 2 ML VIAL (20 MG) IV ONE (13:42)
[2018-12-09] MEDS ORDERED: Acetaminophen TAB* 325 MG PO PRN (14:25)
--- NOTE | 2018-12-09 17:10 | HP ---
CC: Dr. Thomas * [facility] MEDICINE HISTORY AND PHYSICAL: DATE OF ADMISSION: 12/09/18 PRIMARY CARE PHYSICIAN: Dr. Thomas. ATTENDING PHYSICIAN: Dr. Delta Monroe * (dictation provided by Aleah Gonzalez NP). CHIEF COMPLAINT: Confusion. HISTORY OF PRESENT ILLNESS: Ms. Garduno is an 83-year-old female with a past medical history of atrial fibrillation and mild dementia, who presents to the hospital today with concern for confusion. Ms. Garduno states that she has had some ongoing health problems recently. She describes this as a chronic cough with chronic postnasal drip. In the last month, she has been diagnosed with a COPD exacerbation and bronchitis. She had no known history of COPD prior to this. She was treated with Bactrim DS and completed that treatment on or about 10/24/18. The patient and the daughter report that the patient's symptoms have waxed and waned, but have not significantly improved. The main complaint is of chronic cough. The patient also reports some new lower extremity edema. There has been no report of fever or chills. The patient states she has not felt sick. She has been tolerating oral intake well with no nausea, vomiting, diarrhea, or abdominal pain. She has had no chest pain. She reports that she follows up with Dr. Jimenez regularly for cardiac care and the plan was for repeat echocardiogram per routine in the fall. In the setting of this, Ms. Garduno woke up this morning and felt that she was confused. She reached out to her daughter, who came to evaluate and had her brought to the emergency room. She states that she is feeling better now. Her daughter confirms that she is back to baseline. In the emergency room, Ms. Garduno had a chest x-ray, which showed concern for possible pneumonia with pleural effusion and question of COPD. She had CT of the brain, which showed no acute abnormality. An EKG, which showed AFib, which is her baseline. Her labs are not remarkable. She has a white blood cell count of 7.6. No anemia. Her blood gas shows a fully compensated metabolic acidosis. Her electrolytes are normal. Her BUN and creatinine normal. Troponin is 0.01. Urine shows no evidence of infections. PAST MEDICAL HISTORY: 1. Atrial fibrillation. 2. Dementia, mild. 3. Tricuspid valve disorder. 4. Aortic stenosis (mild 2013). MEDICATIONS: Medications outpatient are: 1. Multivitamin 1 tab p.o. daily. 2. Ascorbic acid 500 mg p.o. daily. 3. Digoxin 0.25 mg p.o. daily. 4. Diltiazem 180 mg p.o. daily. 5. Metoprolol succinate 25 mg p.o. q.p.m. ALLERGIES: ALENDRONATE, CODEINE, MORPHINE, PREDNISONE. FAMILY HISTORY: The patient's mother at 93 of old age. Dad related to an uncertain heart condition, but he did have a pacemaker. SOCIAL HISTORY: The patient is a former smoker, but quit decades ago. No report of alcohol or drug use. She lives at [facility] and her daughter, Arlet is the healthcare proxy. REVIEW OF SYSTEMS: A 14-point review of systems was completed with Ms. Garduno and all those not mentioned above were negative. PHYSICAL EXAMINATION GENERAL: Ms. Garduno is sitting up in the bed, she is in no acute distress. Her daughter is at the bedside. VITAL SIGNS: Temperature 97.7, pulse rate 85, respiratory rate 25, O2 saturation 94% on room air, blood pressure 165/83. LUNGS: Clear to auscultation bilaterally. They are diminished on bilateral bases. There is no wheezing, no rhonchi. HEART: S1, S2 and there is a prominent systolic murmur at the sternal border. EXTREMITIES: Positive for very trace to mild edema on the bilateral lower extremities. NEUROLOGIC: She is alert and oriented x3. She moves all extremities equally. There is no facial asymmetry or focal weakness. Extraocular movements are intact. SKIN: Intact. DIAGNOSTIC STUDIES/LAB DATA: WBC 7.6, hemoglobin 13.8, hematocrit 40, platelet count 333. INR 1.17. VBG is 7.40, pCO2 of 57, pO2 of less than 38, bicarbonate 30. Sodium 131, potassium 4.7, chloride 93, BUN 14, creatinine 0.59. Glucose 109. Troponin 0.01. TSH 1.63. Urine shows trace leukocyte esterase only, no bacteria, no nitrites. CT brain is read as "advanced involutional change in stigmata of chronic small vessel ischemic disease. 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 EKG shows atrial fibrillation with no change from previous. ASSESSMENT: Ms. Garduno is an 83-year-old female with a past medical history of atrial fibrillation, who presents today to the hospital with concern for confusion, which is now resolved. Workup has revealed an abnormal chest x-ray and concern for possible pneumonia. Our plans are for observation in the hospital for the followin. Question pneumonia. The patient does have a cough, but she has no fever or leukocytosis. Plan to check a CRP to further evaluate for potential infection. Given the significant abnormalities seen on chest x-ray without any clear symptoms to corroborate them, plan to check a chest CT as this could also help to further evaluate her pleural effusions. We will wait to determine the use of antibiotics based on CT scan results. At this point, she does not meet sepsis criteria. 2. Pleural effusion with lower extremity edema. The patient may have a worsening murmur with concern for worsening aortic stenosis. I would like to check a transthoracic echocardiogram to evaluate the murmur as well as to determine a cause for the pleural effusions. I think that if the echocardiogram is not revealing that she may benefit from a thoracentesis, which can be arranged tomorrow. I have not spoken with Radiology today about that. 3. Atrial fibrillation. Her heart rate is controlled. Plan to continue her home medications. She is not on anticoagulation per her choice outpatient. 4. Question COPD. Have recommended to patient and her daughter that they follow up with Dr Jordan for formal pulmonary function testing. 4. DVT prophylaxis with heparin subcu. 5. Code status is DNR and the MOLST form was completed with the patient at the bedside. TIME SPENT: Approximately 60 minutes was spent on the admission of this patient , more than half the time spent with the patient at the bedside reviewing the events leading up to this hospitalization, performing the physical examination, and reviewing my plan of care. ALEAH GONZALEZ NP [id number]/CPS #: [id number]
[2018-12-09] MEDS: Metoprolol Succinate XL TAB* 25 MG PO SCH (18:44)
[2018-12-09] MEDS: Heparin VIAL(*) 5000 UNITS/ML VIAL (FIVE THOUSAND) SUBCUT SCH (20:45)
[2018-12-10] MEDS: Heparin VIAL(*) 5000 UNITS/ML VIAL (FIVE THOUSAND) SUBCUT SCH ×3 (05:17→21:36)
[2018-12-10 07:20] LABS: BUN/Creatinine Ratio 21.7 (8-20); Calcium 9.4 mg/dL (8.6-10.3); EGFR African American 115.2 (>60); EGFR Non-African American 95.2 (>60); Potassium 4.2 mmol/L (3.5-5.0)
[2018-12-10] MEDS: Digoxin TAB* 0.25 MG PO SCH (08:37)
[2018-12-10] MEDS: Diltiazem CD CAP* 180 MG PO SCH (08:38)
[2018-12-10] MEDS: Ascorbic Acid TAB* 500 MG PO SCH (08:38)
--- NOTE | 2018-12-10 15:04 | PN ---
Subjective Date of Service: 12/10/18 Interval History: Ms. Garduno is feeling better today. She is concerned about the confusion she experienced yesterday. She remembers the events and remembers feeling confused. This has not happened to her in the past. Denies CP, SOB, N/V. No concerns from nursing. Family History: Unchanged from Admission Social History: Unchanged from Admission Past Medical History: Unchanged from Admission Objective Active Medications: Acetaminophen (Tylenol Tab*) 650 mg PO Q6H PRN PAIN - MILD Ascorbic Acid (Vitamin C Tab*) 500 mg PO DAILY MIMI Digoxin (Lanoxin Tab*) 0.25 mg PO DAILY MIMI Diltiazem HCl (Cardizem Cd Cap*) 180 mg PO DAILY MIMI Heparin Sodium (Porcine) (Heparin Vial(*)) 5,000 units SUBCUT Q8HR MIMI Metoprolol Succinate (Toprol Xl Tab*) 25 mg PO QPM [facility] Vital Signs - 8 hr 12/10/18 08:12 Temperature 98.2 F Pulse Rate 103 Respiratory 20 Rate Blood Pressure 133/73 (mmHg) O2 Sat by Pulse 92 Oximetry Oxygen Devices in Use Now: None Appearance: Elderly female sitting in bed in NAD Eyes: No Scleral Icterus Ears/Nose/Mouth/Throat: Mucous Membranes Moist Neck: NL Appearance and Movements; NL JVP, Trachea Midline Respiratory: Symmetrical Chest Expansion and Respiratory Effort, Clear to Auscultation Cardiovascular: RRR, - - Grade 2/6 systolic murmur Abdominal: NL Sounds; No Tenderness; No Distention Extremities: - - Mild nonpitting BLE Neurological: Alert and Oriented x 3 Lines/Tubes/Other Access: Clean, Dry and Intact Peripheral IV Nutrition: Taking PO's Result Diagrams: 12/09/18 10:11 12/10/18 06:36 Assess/Plan/Problems-Billing Assessment: MS. Garduno is an 83 yo F with PMH of afib, dementia, and mild ; who presented to the ED with c/o AMS and was found to have bilateral pleural effusions and LE edema. - Patient Problems (1) Altered mental status Code(s): R41.82 - ALTERED MENTAL STATUS, UNSPECIFIED Comment: - Transient, prior to admission - Suspect this was secondary to underlying dementia, but will work up for TIA - Lipid panel pending - MRI brain and carotid US today (2) Pleural effusion, bilateral Code(s): J90 - PLEURAL EFFUSION, NOT ELSEWHERE CLASSIFIED Comment: - Asymptomatic - Unclear etiology - CT shows bilateral effusions, R>L and possible 3cm round atelectasis - Reviewed with Pulmonology who recommended outpatient follow up, but no need to workup further or treat inpatient - Additional dose of furosemide today (3) Aortic stenosis Code(s): I35.0 - NONRHEUMATIC AORTIC (VALVE) STENOSIS Comment: - Previously mild, now noted to be moderate on echo - Asymptomatic, but this could be contributing to effusions (4) Atrial fibrillation Code(s): I48.91 - UNSPECIFIED ATRIAL FIBRILLATION Comment: - Rate controlled - Not on anticoagulation - Continue metoprolol, digoxin, diltiazem (5) Dementia Code(s): F03.90 - UNSPECIFIED DEMENTIA WITHOUT BEHAVIORAL DISTURBANCE Comment : - Mild - Supportive care (6) DVT prophylaxis Code(s): Z29.9 - ENCOUNTER FOR PROPHYLACTIC MEASURES, UNSPECIFIED Comment: - Heparin SQ (7) DNR (do not resuscitate) Comment: Status and Disposition: Observation. Anticipate d/c home when medically stable, hopefully tomorrow. Attending: Dinorah Patel
--- NOTE | 2018-12-10 16:13 | ECHO ---
*[facility]* [place] [address] Fax #: [phone] Transthoracic Echocardiogram Patient: Karen Garduno : 1935 Study Date: 12/10/2018 Age: 83 Gender: F HR: 86 bpm Height: 65 in /165.1 cm BSA: 1.47 m^2 Weight: 99.8 lb /45.4 kg BMI: 16.6 kg/m^2 *Valve And Regulator Repairer: Anny Tolliver [facility] *Referring Physician: * Aleah Gonzalez *Reading Physician: * Ciaran Chan MD Indications: Congestive Heart Failure. History: Atrial fibrillation. Aortic stenosis. Chronic obstructive pulmonary disease. Risk factors: Hypertension. Conclusions Summary: - Left ventricle: Systolic function is hyperdynamic. The estimated ejection fraction is 60-65%. Wall motion is normal; there are no regional wall motion abnormalities. - Right ventricle: Systolic function is normal. - Mitral valve: The findings are consistent with mild stenosis. There is mild regurgitation. - Aortic valve: The annulus is mildly calcified. The valve is trileaflet. The leaflets are moderately thickened. The findings are consistent with moderate stenosis. There is no significant regurgitation. The mean systolic gradient is 19.0 mm Hg. The LVOT to aortic valve VTI ratio is 0.4. The valve area by the peak velocity method is 1.10 cm^2. - Tricuspid valve: There is mild-moderate regurgitation. - Ascending aorta: The ascending aorta is mildly dilated. - Pericardium, extracardiac: There is no significant pericardial effusion. - Pulmonary arteries: Systolic pressure is mildly increased. The peak pressure during systole by Doppler is 39.0 mm Hg. - Compared to study of 06/06/14, left ventricle function is the same. The has changed from mild to now moderate. Study data: Transthoracic echocardiogram. Procedure: Transthoracic echocardiography was performed. Image quality was good. Complete 2D, spectral Doppler, and color flow Doppler. Location: Bedside. Patient status: Inpatient. Patient room number: 448 02. Rhythm: Atrial fibrillation. Findings Left ventricle: The cavity size is mildly reduced. Wall thickness is mildly increased. Systolic function is hyperdynamic. The estimated ejection fraction is 60-65%. Wall motion is normal; there are no regional wall motion abnormalities. Left ventricular diastolic function parameters are indeterminate. Right ventricle: The cavity size is normal. Systolic function is normal. Left atrium: The atrium is severely dilated. Right atrium: The atrium is normal in size. Mitral valve: The Mitral valve annulus appears moderately calcified. The leaflets are moderately thickened. The findings are consistent with mild stenosis. There is mild regurgitation. Aortic valve: The annulus is mildly calcified. The valve is trileaflet. The leaflets are moderately thickened. Cusp separation is reduced. Valve mobility is moderately restricted. The findings are consistent with moderate stenosis. There is no significant regurgitation. Tricuspid valve: The leaflets are normal thickness. There is no evidence of stenosis. There is mild-moderate regurgitation. Pulmonic valve: The leaflets are normal thickness. There is no evidence of stenosis. There is mild regurgitation. Aorta: Aortic root: The aortic root is appears normal. Ascending aorta: The ascending aorta is mildly dilated. Aortic arch: The aortic arch is poorly visualized. Descending aorta: The descending aorta is calcified. Pericardium: There is no significant pericardial effusion. There is a pleural effusion. Pulmonary arteries: Not well visualized. Systolic pressure is mildly increased. Systemic veins: Inferior vena cava: The vessel is normal in size. There is (< 50%) respiratory change in the IVC dimension. Measurements Left ventricle Value Ref Aortic valve continued Value Ref AKILA, LAX (L) 3.3 cm 3.8 - 5.2 Peak grad, S 32.0 mm Hg ----- ESD, LAX (L) 1.9 cm 2.2 - 3.5 LVOT/AV, VTI ratio 0.4 ----- FS, LAX 43 % 27 - 45 HERB, VTI 1.10 cm^2 ----- PW, ED, LAX (H) 1.0 cm 0.6 - 0.9 HERB, Vmax 1.10 cm^2 ----- EF (H) 75 % 54 - 74 E', med brendan, TDI (L) 6.2 cm/sec >=7.0 Mitral valve Value R ef E/e', med brendan, 24 Peak E 1.49 m/sec ---- - TDI Peak A 0.06 m/sec ----- Decel time 144 ms ----- LVOT Value Ref PHT 52 ms ----- Diam, S 1.90 cm Mean grad, D 6.0 mm Hg ----- Area 2.8 cm^2 Peak grad, D 9.0 mm Hg ----- Peak vince, S 1.1 m/sec Peak E/A ratio 25.3 ----- VTI, S 20.5 cm MVA, PHT 4.1 cm^2 ----- Peak grad, S 5 mm Hg Mean grad, S 3 mm Hg Pulmonic valve Value Ref Peak v, S 1.07 m/sec ----- Ventricular septum Value Ref Peak grad, S 5.0 mm Hg ----- IVS, ED (H) 1.0 cm 0.6 - 0.9 Tricuspid valve Value Ref Right ventricle Value Ref TR peak v (H) 3 m/sec <=2.8 AKILA, LAX 2.8 cm Peak RV-RA grad, S 36 mm Hg ----- AKILA minor ax, A4C 2.4 cm 1.9 - 3.5 mid Aortic root Value Ref Pressure, S 44 mm Hg Root diam 2.8 cm <3.7 Left atrium Value Ref Ascending aorta Value Ref AP dim, ES 3.80 cm 2.70 - AAo AP diam, S 3.8 cm ----- 3.80 Vol/bsa, ES, 1-p (H) 89 ml/m^2 11 - 40 Aortic arch Value Ref A4C Arch diam 2.5 cm ----- Right atrium Value Ref Pulmonary artery Value Ref SI dim, ES 4.8 cm 3.4 - 5.3 Pressure, S 39.0 mm Hg ----- ML dim, ES, A4C 3.7 cm 2.6 - 4.4 Estimated RAP 8 mm Hg Inferior vena cava Value Ref Diam 1.6 cm ----- Aortic valve Value Ref Brendan diam, ED 1.9 cm Peak v, S 2.8 m/sec VTI, S 53.0 cm Mean grad, S 19.0 mm Hg Legend: (L) and (H) ethan values outside specified reference range. Prepared and electronically signed by Ciaran Chan MD 12/10/2018 16:12
[2018-12-10] MEDS ORDERED: Furosemide IV* 10 MG/ML 2 ML VIAL (20 MG) IV ONE (16:28)
[2018-12-10 16:52] LABS: HDL Cholesterol 47.2 mg/dL
[2018-12-10] MEDS: Metoprolol Succinate XL TAB* 25 MG PO SCH (18:28)
[2018-12-11] MEDS: Heparin VIAL(*) 5000 UNITS/ML VIAL (FIVE THOUSAND) SUBCUT SCH (05:18)
[2018-12-11 07:20] LABS: Calcium 9.2 mg/dL (8.6-10.3); EGFR African American 142.2 (>60); EGFR Non-African American 117.5 (>60); Potassium 4.2 mmol/L (3.5-5.0)
[2018-12-11 08:34] VITALS: BP 134/66
[2018-12-11] MEDS: Digoxin TAB* 0.25 MG PO SCH (08:35)
[2018-12-11] MEDS: Ascorbic Acid TAB* 500 MG PO SCH (08:35)
[2018-12-11] MEDS: Diltiazem CD CAP* 180 MG PO SCH (08:35)
--- NOTE | 2018-12-11 21:43 | DS ---
CC: Dr. Regan Thomas; Dr. Polly Jordan; Dr. Deidre Jimenez * DISCHARGE SUMMARY: DATE OF ADMISSION: 12/09/18 DATE OF DISCHARGE: 12/11/18 PRIMARY CARE PROVIDER: Dr. Regan Thomas. ATTENDING PHYSICIAN: Dr. Dinorah Patel * (dictated by Angelica Fox NP). PRIMARY DIAGNOSES: 1. Transient altered mental status, dementia versus transient ischemic attack. 2. Bilateral pleural effusions. 3. Moderate aortic stenosis. SECONDARY DIAGNOSES: 1. Atrial fibrillation. 2. Dementia. STUDIES WHILE IN THE HOSPITAL: 1. Brain CT, on 12/09/18, reads as advanced involutional change and stigmata of chronic small vessel ischemic disease. Negative for intracranial hemorrhage or CT stigmata of acute or subacute ischemic infarct. 2. EKG, on 12/09/18, shows atrial fibrillation with a rate of 91, QTc 426. 3. Chest x-ray, on 12/09/18, reads as advanced chronic obstructive pulmonary disease and emphysema. Bibasilar pneumonia with associated right larger than left pleural effusions. Stigmata of probable pulmonary arterial hypertension. Evidence for prior pulmonary granulomatous disease. 4. Chest CT, on 12/09/18, reads as moderate dependent right and small dependent left pleural effusions with proportional compressive atelectasis. Presence of pneumonia is not favored based on the CT appearance. A 3-cm region of probable rounded atelectasis at the lateral segment of the right middle lobe inferiorly for which reassessment with CT in 3 months' time is suggested to exclude possibility of a neoplastic process. Cardiomegaly and mild interstitial edema. 5. Transthoracic echocardiogram, on 12/10/18, reads as the left ventricular systolic function is hyperdynamic. The estimated ejection fraction is 60% to 65 %. Wall motion is normal and there are no regional wall motion abnormalities. Right ventricular systolic function is normal. Findings are consistent with mild mitral stenosis. There is mild mitral regurgitation. The aortic valve annulus is mildly calcified. The valve is trileaflet. The leaflets are moderately thickened. These findings are consistent with moderate aortic stenosis. There is no significant aortic regurgitation. There is mild-to- moderate tricuspid regurgitation. The ascending aorta is mildly dilated. There is no significant pericardial effusion. Pulmonary artery systolic pressure is mildly increased. Repeat pressure during systole by Doppler is 39 mmHg. Comparative study of 06/06/14, left ventricular function is the same. The has changed from mild to moderate. 6. Brain MRI, on 12/10/18, reads as no acute intracranial abnormality. 7. Bilateral carotid ultrasound, on 12/10/18, reads as unremarkable. No carotid arterial stenosis. HISTORY OF PRESENT ILLNESS AND HOSPITAL COURSE: Ms. Garduno is an 83-year-old female with past medical history of atrial fibrillation, dementia, and mild aortic stenosis, who presented to the emergency room on 12/09/18 with complaints of confusion. Please see the history and physical by Aleah Gonzalez NP , for a complete summary of the events leading up to this hospitalization. In short, the patient did complain of a chronic cough and some lower extremity edema, though the main complaint was that of transient confusion that morning. The patient's confusion was resolved by the time she arrived to the emergency room and she does remember the entire event and remembers feeling confused. In the emergency room, the patient had imaging, for which there was initially concern for pneumonia, though that was ruled out with CT. There was no evidence of infection, although the patient was noted to have pleural effusions , which are presumably new due to the transient confusion and the pleural effusions. The patient was admitted by the hospitalist service. The patient was given 1 dose of furosemide on the night of admission and an additional dose of furosemide yesterday on 12/10/18. At this point, she is asymptomatic regarding her pleural effusion. She denies any shortness of breath and actually does not report any cough to me. The etiology of these pleural effusion is unknown, though potentially could be secondary to her aortic stenosis. I did speak with Pulmonology, who reviewed her CT scan and indicated that the patient could follow up outpatient and there was no need for acute treatment of these pleural effusions. Regarding the patient's altered mental status, she had a transient episode of confusion of the morning of admission. Again, the cause of this was not clear, though could potentially be due to advancing dementia or a TIA. The patient is not on any anticoagulation for her atrial fibrillation due to her choice, and she is also not willing to start aspirin. She has remained in atrial fibrillation during this hospital stay, which has been rate controlled. She did have a lipid panel showing moderately good control with triglycerides of 44, total cholesterol of 141, LDL of 85, and HDL of 47. She is noted to have some mild hyponatremia though it appears as though she has had some mild hyponatremia in the past as well. Vital signs have otherwise been stable. On exam today, the patient reports feeling well. She offers no complaints, though is anxious to return home. Her daughter is at the bedside during my exam. The patient has no focal neurological deficits and she is alert and oriented x4. Her heart has an irregular rhythm with a normal rate. S1, S2 present. No murmurs, rubs, or gallops. No JVD. Lung sounds are clear to auscultation, though the right middle and lower lobes are diminished. There are no rhonchi, wheezes, or rubs. There is no evidence of edema. Physical exam is otherwise benign. Ms. Garduno is stable for discharge today. Vital signs are as follows: Temp 98.2, heart rate 95, respiratory rate 16, oxygen saturation 91% on room air, blood pressure 134/66. DISCHARGE MEDICATIONS: Continued medications: 1. Ascorbic acid 500 mg p.o. daily. 2. Digoxin 0.25 mg p.o. daily. 3. Diltiazem ER 180 mg p.o. daily. 4. Metoprolol succinate 25 mg p.o. at bedtime. 5. Multivitamin 1 tab p.o. daily. DISCHARGE PLAN: Ms. Garduno will be discharged home back to [facility]. Activity will be as tolerated. Diet will be regular as tolerated. I have not made any medication changes and she can continue her usual medications as noted above. I have recommended that the patient start a daily aspirin, which she is unwilling to do at this time as she has had significant bruising while taking aspirin in the past. The daughter was present for this conversation and would like to respect her mom's wishes in regards to medications. At this time, the patient does not want any additional medications added to her daily regimen. The patient will need a followup for her pleural effusions and she can follow up with Dr. Jordan, who did personally review her CT scan. The patient should have formal pulmonary function tests as imaging is indicative of COPD, although the patient does not have a formal diagnosis of COPD. The patient may also need further workup and treatment for these pleural effusions and may need a repeat CT scan in 3 months as noted above to reassess the lesion in the right middle lobe. The patient should follow up with her program manager transportation as previously advised and should follow up with her primary care provider in the next 4 to 7 days. She has been advised to return to the emergency room or nearest hospital for any worsening of symptoms, shortness of breath, lightheadedness, dizziness, chest discomfort, high fevers, chills, night sweats, loss of consciousness, or any other worrisome signs or symptoms. DISCHARGE CONDITION: Stable. DISCHARGE DISPOSITION: Home, [facility]. This is a summarized report of a complex medical history and hospital stay. For further details, please see the entire medical record. TIME SPENT: Approximately 50 minutes was spent on this discharge. ANGELICA FOX NP [id number]/CPS #: [id number] ANNALISE
== END 2018-12-11 11:45 | disposition home or self-care (01) | DRG 884 ==
LOC: ED 09:37 → MEDTELE 12:56 → OBSVTOIN 12-10 11:00
PROVIDERS: ADMIT Internal Medicine; ATTEND Internal Medicine
DX: F03.90 Unspecified dementia, unspecified severity, without behavioral disturbance, psychotic disturbance, mood disturbance, and anxiety (principal); G45.9 Transient cerebral ischemic attack, unspecified; J90 Pleural effusion, not elsewhere classified; E87.1 Hypo-osmolality and hyponatremia; I48.91 Unspecified atrial fibrillation; I08.3 Combined rheumatic disorders of mitral, aortic and tricuspid valves; Z66 Do not resuscitate; Z79.899 Other long term (current) drug therapy; Z88.5 Allergy status to narcotic agent; Z88.8 Allergy status to other drugs, medicaments and biological substances; Z82.49 Family history of ischemic heart disease and other diseases of the circulatory system; Z87.891 Personal history of nicotine dependence
CPT/HCPCS: 36415; 70450; 70551; 71045; 71250; 80048; 80053; 80061; 81003; 81015; 82803; 83880; 84443; 84484; 85025; 85610; 86140; 87086; 87899; 93005; 93306; 93880; 99213; 99285; A9270-GY; G0378; G0463; J0456; J0696; J1940

== ENCOUNTER 2023-03-30 18:26 | Inpatient (IN) ==
[2023-03-30] MEDS ORDERED: Lactated Ringers 1000 ml BAG 1,000 ML IV ONE (19:21)
[2023-03-30 19:43] LABS: ABS Lymphocytes 0.2 10^3/uL (1.0-4.8); ABS Neutrophils 9.9 10^3/uL (1.5-7.6); ABS Nucleated RBC 0.01 10^3/ul; Hematocrit 38.3 % (35-45); Hemoglobin 12.6 g/dL (11.5-14.3); Mean Corpuscular Hemoglobin 32.8 pg (27-33); Mean Corpuscular Hgb Conc 32.8 g/dL (31-36); Mean Corpuscular Volume 100.1 fL (80-97); Mean Platelet Volume 8.4 fL (7.5-11.2); Platelet Count 190 10^3/uL (150-450); Red Blood Count 3.83 10^6/uL (3.63-4.92); Red Cell Distribution Width 12.9 % (12-17); White Blood Count 11.2 10^3/uL (3.8-11.8)
[2023-03-30 20:02] LABS: Albumin 3.2 g/dL (3.2-5.2); Albumin/Globulin Ratio 0.8 (1-3); C Reactive Protein 175.42 mg/L (<8.01); Calcium 9.7 mg/dL (8.6-10.3); Creatinine, Serum 1.01 mg/dL (0.51-0.95); Potassium 5.3 mmol/L (3.5-5.0); Total Bilirubin 0.9 mg/dL (0.2-1.0); Total Protein 7.2 g/dL (6.4-8.9); eGFR CKD-EPI 53.2 (>60)
[2023-03-30] MEDS ORDERED: cefTRIAXone 1 gm/50 mL D5W 1 GM/50 ML BAG IV ONE (20:14)
[2023-03-30] MEDS ORDERED: Iodixanol (CONTRAST) 320 MG/ML 100 ML SDV IV ONE (20:38)
[2023-03-30 20:58] LABS: INR 1.28 (0.83-1.13)
[2023-03-30 21:09] LABS: High Sensitivity Troponin 1 Hr 28 pg/mL (<15)
[2023-03-30] MEDS ORDERED: Azithromycin 500 mg/250 ml NS 500 MG/250 ML BAG IVPB ONE (22:49)
[2023-03-31] MEDS ORDERED: Albuterol 2.5mg/3 ml (0.083%) NEB.SOLN INH PRN (01:23)
[2023-03-31 02:24] LABS: Urine Appearance Cloudy; Urine Bilirubin Negative (Negative); Urine Blood Negative (Negative); Urine Color Yellow; Urine Glucose Negative (Negative); Urine Ketones Negative (Negative); Urine Nitrite Negative (Negative); Urine Protein 1+(30 mg/dL) (Negative); Urine Specific Gravity 1.036 (1.002-1.030); Urine Urobilinogen Negative (Negative)
[2023-03-31] MEDS ORDERED: Metoprolol Tartrate 5 mg VIAL 5 ml VIAL (1 mg/ml) IV PRN (02:48)
[2023-03-31] MEDS ORDERED: NS 0.9% 500 ml BAG 500 ML IV ONE (02:52)
[2023-03-31] MEDS ORDERED: Iodixanol (CONTRAST) 320 MG/ML 100 ML SDV IV ONE (02:52)
[2023-03-31 02:58] LABS: Urine Bacteria Absent (Absent); Urine Red Blood Cell Absent (Absent); Urine Squamous Epithelial Cell Present (Absent); Urine White Blood Cell 1+(6-10/hpf) (Absent)
[2023-03-31] MEDS ORDERED: Piperacillin/Tazobac 3.375 BAG 3.375 GM/100 ML BAG IV ONE (03:27)
[2023-03-31] MEDS: Enoxaparin 40 MG/0.4 ML SYR SUBCUT SCH ×2 (03:29→22:51)
[2023-03-31] MEDS ORDERED: Zosyn per Pharmacy NOTE FOLLOW UP SCH (04:00)
[2023-03-31] MEDS ORDERED: Lactated Ringers 1000 ml BAG 1,000 ML IV SCH (07:00)
[2023-03-31] MEDS: ZOSYN 3.375 GM Q8H per EXTENDED INFUSION IV SCH ×2 (07:58→15:48)
[2023-03-31 12:20] LABS: ABS Basophils 0.1 10^3/uL (0.0-0.1); ABS Lymphocytes 0.4 10^3/uL (1.0-4.8); ABS Monocytes 0.9 10^3/uL (0.0-0.9); ABS Neutrophils 11.4 10^3/uL (1.5-7.6); Eosinophil % 0.1 %; Hematocrit 34.8 % (35-45); Hemoglobin 11.4 g/dL (11.5-14.3); Mean Corpuscular Hemoglobin 33.2 pg (27-33); Mean Corpuscular Hgb Conc 32.9 g/dL (31-36); Mean Platelet Volume 8.2 fL (7.5-11.2); Platelet Count 200 10^3/uL (150-450); Red Blood Count 3.45 10^6/uL (3.63-4.92); Red Cell Distribution Width 12.8 % (12-17); White Blood Count 12.8 10^3/uL (3.8-11.8)
[2023-03-31 12:37] LABS: Calcium 9.2 mg/dL (8.6-10.3); Creatinine, Serum 0.77 mg/dL (0.51-0.95); Potassium 4.5 mmol/L (3.5-5.0); eGFR CKD-EPI 73.7 (>60)
[2023-03-31 15:52] LABS: Urine Appearance Clear; Urine Bilirubin Negative (Negative); Urine Blood Negative (Negative); Urine Color Yellow; Urine Glucose Negative (Negative); Urine Ketones Negative (Negative); Urine Nitrite Negative (Negative); Urine Protein Negative (Negative); Urine Specific Gravity 1.028 (1.002-1.030); Urine Urobilinogen Negative (Negative)
[2023-03-31] MEDS: dilTIAZem 30 MG TAB PO SCH ×2 (16:55→18:16)
[2023-03-31 20:17] VITALS: BP 132/71
[2023-03-31 21:31] LABS: PO2 Arterial 63 mmHg (80-100)
[2023-03-31 21:38] LABS: PCO2 Arterial > 100 mmHg (35-45)
[2023-03-31] MEDS ORDERED: Azithromycin 500 mg/250 ml NS 500 MG/250 ML BAG IVPB SCH ×2 (22:00)
[2023-03-31] MEDS ORDERED: ZOSYN 3.375 GM Q8H per EXTENDED INFUSION IV SCH (23:30)
== END 2023-03-31 23:31 | disposition expired | DRG 871 ==
LOC: ED 18:26 → EDHOLD 18:26 → MEDTELE 03-31 18:49 → UNDODISOB 03-31 23:31
PROVIDERS: ADMIT Internal Medicine; ATTEND Internal Medicine